=== PATIENT | female | born 1975 | race Hispanic/Latino ===

== ENCOUNTER 2017-10-13 18:30 | Inpatient (IN) | payer OTHER ==
[2017-10-13] MEDS ORDERED: Ibuprofen 200 MG TAB ONE ×2 (19:56)
[2017-10-13 20:30] LABS: Hemoglobin 9.4 g/dL (12.0-16.0); Mean Corpuscular HGB CONC 31.2 g/dL (32.0-36.0); Mean Corpuscular Hemoglobin 20.2 pg (27.0-31.0); Mean Corpuscular Volume 64.9 fl (81.0-99.0); Mean Platelet Volume 5.3 fL (7.4-10.4); Platelet Count 212 thou/uL (130-400); RBC Distribution Width 16.3 % (11.5-14.5); Red Blood Cell (RBC) Count 4.66 mill/uL (4.20-5.40)
[2017-10-13 20:45] LABS: ALT (SGPT) 70 U/L (8-55); AST (SGOT) 86 U/L (5-34); Albumin 4.6 g/dL (3.5-5.0); Alkaline Phosphatase 130 U/L (40-150); Anion Gap 13 mmol/L (10-20); BUN (Urea Nitrogen) 6 mg/dL (7.0-18.7); Bilirubin, Direct 0.3 mg/dL (0.1-0.3); Bilirubin, Total 0.6 mg/dL (0.2-1.2); Calc. Creatinine Clearance 0 mL/min (70-130); Calcium 9.3 mg/dL (7.8-10.44); Carbon Dioxide 22 mmol/L (22-29); Chloride 101 mmol/L (98-107); Estimated GFR-MDRD Greater than 90; Globulin 3.9 g/dL (2.4-3.5); Glucose 140 mg/dL (70-105); Potassium 3.9 mmol/L (3.5-5.1); Protein, Total 8.5 g/dL (6.0-8.3); Sodium 132 mmol/L (136-145)
[2017-10-13 20:51] LABS: #Lymphocytes 0.5 thou/uL (1.20-3.40); #Monocytes 0.3 thou/uL (0.11-0.59); #Neutrophils 4.2 thou/uL (1.40-6.50); %Eosinophils 0.5 % (0.0-10.0); %Lymphocytes 9.2 % (21.0-51.0); %Monocytes 5.9 % (0.0-10.0); %Neutrophils 84.5 % (42.0-75.0); Anisocytosis SLIGHT = 6-15 cells (100X) (0-5/hpf); Hypochromia SLIGHT = 6-15 cells (100X) (0-5/hpf); MDiff Complete? YES; Microcytosis MODERATE=15-30 cells (100X) (0-5/hpf); PLT Morphology Comment Appears Adequate
[2017-10-13 23:21] LABS: Magnesium 2.3 mg/dL (1.6-2.6)
[2017-10-13] MEDS ORDERED: Pantoprazole 40 MG VIAL ONE (23:22)
[2017-10-13] MEDS ORDERED: Ondansetron HCl/PF 4 MG/2 ML Vial ONE (23:22)
[2017-10-14] MEDS ORDERED: Acetaminophen 500 MG TAB ONE (01:20)
[2017-10-14] MEDS: Sodium Chloride 0.9% 1,000 ML IV SCH ×3 (02:10→17:09)
[2017-10-14 02:34] VITALS: BMI 27.6
[2017-10-14 03:46] LABS: Anion Gap 13 mmol/L (10-20); BUN (Urea Nitrogen) 5 mg/dL (7.0-18.7); Calc. Creatinine Clearance 149 mL/min (70-130); Calcium 8.4 mg/dL (7.8-10.44); Carbon Dioxide 19 mmol/L (22-29); Chloride 106 mmol/L (98-107); Estimated GFR-MDRD Greater than 90; Glucose 123 mg/dL (70-105); Potassium 3.6 mmol/L (3.5-5.1); Sodium 134 mmol/L (136-145)
[2017-10-14 03:47] LABS: Iron 15 ug/dL (50-170); Iron Binding Capacity, Total 423 mcg/dL (265-497)
[2017-10-14 03:59] LABS: Hemoglobin 8.3 g/dL (12.0-16.0); Mean Corpuscular HGB CONC 31.9 g/dL (32.0-36.0); Mean Corpuscular Hemoglobin 20.8 pg (27.0-31.0); Mean Corpuscular Volume 65.1 fl (81.0-99.0); Mean Platelet Volume 5.3 fL (7.4-10.4); Platelet Count 163 thou/uL (130-400); RBC Distribution Width 16.1 % (11.5-14.5); Red Blood Cell (RBC) Count 3.97 mill/uL (4.20-5.40); White Blood Cell (WBC) Count 3.3 thou/uL (4.8-10.8)
[2017-10-14 04:17] LABS: #Lymphocytes 0.4 thou/uL (1.20-3.40); #Monocytes 0.2 thou/uL (0.11-0.59); #Neutrophils 2.7 thou/uL (1.40-6.50); %Basophils 0.2 % (0.0-1.0); %Eosinophils 0.7 % (0.0-10.0); %Lymphocytes 11.2 % (21.0-51.0); %Monocytes 6.1 % (0.0-10.0); %Neutrophils 81.7 % (42.0-75.0); Anisocytosis SLIGHT = 6-15 cells (100X) (0-5/hpf); MDiff Complete? YES; Microcytosis MODERATE=15-30 cells (100X) (0-5/hpf)
[2017-10-14] MEDS ORDERED: Diabetic Tussin 200 MG/10 ML UDCUP PO PRN (04:22)
[2017-10-14] MEDS ORDERED: Senokot 8.6 MG TAB PO PRN (04:22)
[2017-10-14] MEDS ORDERED: Calcium Carbonate 500 MG ChewTAB PO PRN (04:22)
[2017-10-14] MEDS ORDERED: cloNIDine 0.1 MG TAB PO PRN (04:22)
[2017-10-14] MEDS ORDERED: Mag-Al 1200 mg/1200 mg/30 ML UDCUP PO PRN (04:22)
[2017-10-14] MEDS ORDERED: Acetaminophen 325 MG TAB PO PRN (04:22)
[2017-10-14] MEDS ORDERED: hydrALAZINE 20 MG/ML VIAL SLOW IVP PRN (04:22)
[2017-10-14] MEDS ORDERED: Bisacodyl 5 MG TAB PO PRN (04:22)
[2017-10-14] MEDS ORDERED: Benzonatate 100 MG CAP PO PRN (04:22)
[2017-10-14] MEDS ORDERED: IRON SUCROSE COMPLEX 100 MG/5 ML SLOW IVP SCH (04:45)
[2017-10-14] MEDS ORDERED: Iron Sucrose Complex 200 MG in Sodium Chloride 0.9% 250 ML 250 ML IVPB SCH (05:15)
[2017-10-14] MEDS: Levothyroxine Sodium 88 MCG TAB PO SCH (05:20)
[2017-10-14 06:02] LABS: INR-International Normal Ratio 1.2; PTT 31.3 SEC (22.9-36.1); Prothrombin Time 14.9 SEC (12.0-14.7)
[2017-10-14 06:08] LABS: BHCG - Serum Negative (NEGATIVE); Pregs Control Background? CLEAR/WHITE (CLR/WHITE); Pregs Control Bar Appear? YES (CONTROL BAR)
[2017-10-14] MEDS: Nitroglycerin 0.4 MG TAB (25 Tab Bottle) SL PRN ×2 (07:03→07:08)
--- NOTE | 2017-10-14 07:52 | PDOC.EVN ---
Event Note - Event Note Event Note: fever 101.4, HR 150s and chest pain most recent labs demonstrate progression towards leukopenia Concern for evolving sepsis and potential DC stat: troponin, EKG, blood cx x2, lactic acid broaden empiric abx to vancomycin, ceftriaxone - if recurrent febrile episode will need to repeat blood cultures Given presentation with diffuse cervical lymphadenopathy, infectious/ reactive vs oncologic origin are both of concern check CT abd/ pelvis to eval for potential abscess/ infectious origin check CT chest to r/o PE
[2017-10-14] MEDS: Ondansetron HCl/PF 4 MG/2 ML Vial IVP PRN (08:01)
[2017-10-14] MEDS: Acetaminophen 325 MG TAB PO PRN (08:01)
[2017-10-14 08:10] LABS: #Lymphocytes 0.4 thou/uL (1.20-3.40); #Monocytes 0.1 thou/uL (0.11-0.59); #Neutrophils 3.3 thou/uL (1.40-6.50); %Eosinophils 0.4 % (0.0-10.0); %Lymphocytes 9.6 % (21.0-51.0); %Monocytes 3.6 % (0.0-10.0); %Neutrophils 86.4 % (42.0-75.0); Hemoglobin 8.4 g/dL (12.0-16.0); Mean Corpuscular HGB CONC 30.8 g/dL (32.0-36.0); Mean Corpuscular Hemoglobin 20.3 pg (27.0-31.0); Mean Platelet Volume 4.7 fL (7.4-10.4); Platelet Count 146 thou/uL (130-400); RBC Distribution Width 16.1 % (11.5-14.5); Red Blood Cell (RBC) Count 4.14 mill/uL (4.20-5.40); White Blood Cell (WBC) Count 3.9 thou/uL (4.8-10.8)
[2017-10-14 08:23] LABS: ALT (SGPT) 71 U/L (8-55); AST (SGOT) 82 U/L (5-34); Albumin 4.1 g/dL (3.5-5.0); Alkaline Phosphatase 119 U/L (40-150); Anion Gap 16 mmol/L (10-20); BUN (Urea Nitrogen) 6 mg/dL (7.0-18.7); Bilirubin, Total 0.7 mg/dL (0.2-1.2); Calc. Creatinine Clearance 118 mL/min (70-130); Calcium 8.3 mg/dL (7.8-10.44); Carbon Dioxide 17 mmol/L (22-29); Chloride 105 mmol/L (98-107); Estimated GFR-MDRD 88; Globulin 3.3 g/dL (2.4-3.5); Glucose 151 mg/dL (70-105); Potassium 3.7 mmol/L (3.5-5.1); Protein, Total 7.4 g/dL (6.0-8.3); Sodium 134 mmol/L (136-145)
[2017-10-14 08:34] LABS: Band 27 % (5-11); Hypochromia SLIGHT = 6-15 cells (100X) (0-5/hpf); Lymphocytes 6 % (21-51); MDiff Complete? YES; Metamyelocyte 1 % (0-0); Microcytosis MODERATE=15-30 cells (100X) (0-5/hpf); Monocytes 1 % (0-10); Neutrophil 65 % (42-75); PLT Morphology Comment Appears Adequate; Polychromasia SLIGHT = 2-3 cells (100X) (0-2/hpf); Reflex for Review?? NO; Small Platelets MODERATE
[2017-10-14] MEDS: cefTRIAXone\\ROCEPHIN 2 GM, Admixture Fee 1 EACH in Sodium Chloride 0.9% 100 ML IVPB SCH (08:42)
[2017-10-14] MEDS ORDERED: FLU VACC QS2017-18 36 mo. & older 0.5 ML SYRINGE IM ONE (09:00)
[2017-10-14] MEDS ORDERED: Vancomycin HCl 1 GM in Sodium Chloride 0.9% 250 ML 250 ML IVPB SCH (09:00)
[2017-10-14] MEDS: Vancomycin HCl 1 GM in Premix Bag 1 BAG IVPB SCH ×2 (09:23→17:09)
[2017-10-14] MEDS: Ibuprofen 600 MG TAB PO PRN (10:11)
--- NOTE | 2017-10-14 10:53 | HP ---
DATE OF ADMISSION: 10/14/2017 PRIMARY CARE PHYSICIAN: Yudith Gates M.D. CHIEF COMPLAINT: Nausea, vomiting, abdominal pain, and neck swelling as well as fever. HISTORY OF PRESENT ILLNESS: Ms. Finley is a very pleasant 42-year-old female without any sign ificant past medical history, who presented to the emergency room with the above-mentioned complaints . History is mainly obtained by the patient herself and the electronic medical records have been rev iewed. Case has been discussed with the admitting ER physician, Dr. Hilda Yan. According to Ms. Finley, she has noticed swelling in the left side of her neck about 2 weeks ago, which did not bother her much. She is otherwise asymptomatic up until 2 days ago when she started to have low-grade fever. She did not measure how high the temperature was. Yesterday morning, she started to have vomiting and significant abdominal pain without any diarrhea. She denies any hematochezia, m radha, or hematemesis. She denies any sick contacts. She denies any cough, runny nose, sore throat, or flu-like symptoms. She underwent an outpatient CT scan of her neck by her primary care physician yesterday morning. That showed significant lymphadenopathy in the left side within the posterior tr iangle of the neck on the left. Upon presentation to the emergency room today, she was hemodynamically stable except that she had a f ever of 101.9 and was tachycardic to 123. Her workup included a CBC which showed that her hemoglobin has dropped to 9.4, which was 14.1 in 04/2017. The patient denies any excessive menstrual bleeding. The patient does not think that she is because she has her tubal ligation done, but pregna ncy test has not been done in the emergency room. She denies any overt bleeding. She is not on any blood thinners. Ms. Finley is now being admitted for various findings including unexplained microcytic anemia, cervical lymphadenopathy as well as vomiting, and abdominal pain. PAST MEDICAL HISTORY: Hypothyroidism. PAST SURGICAL HISTORY: Cholecystectomy, section x2, and tubal ligation. PSYCHIATRIC HISTORY: No anxiety or depression. SOCIAL HISTORY: She is and has 3 kids. No drug, tobacco or alcohol abuse. FAMILY HISTORY: Significant for leukemia in her brother and lung cancer in her father. Her mother i s a diabetic. ALLERGIES: No known medication allergies. CURRENT MEDICATIONS: Levothyroxine 88 mcg daily, cefdinir 300 mg b.i.d. She has been taking this fo r last 2 days. REVIEW OF SYSTEMS: The following complete review of systems was negative, unless otherwise mentioned in the HPI or below: Constitutional: Weight loss or gain, ability to conduct usual activities. Skin: Rash, itching. Eyes: Double vision, pain. ENT/Mouth: Nose bleeding, neck stiffness, pain, tenderness. Cardiovascular: Palpitations, dyspnea on exertion, orthopnea. Respiratory: Shortness of breath, wheezing, cough, hemoptysis, fever or night sweats. Gastrointestinal: Poor appetite, abdominal pain, heartburn, nausea, vomiting, constipation, or diarr hea. Genitourinary: Urgency, frequency, dysuria, nocturia. Musculoskeletal: Pain, swelling. Neurologic/Psychiatric: Anxiety, depression. Allergy/Immunologic: Skin rash, bleeding tendency. PHYSICAL EXAMINATION: VITAL SIGNS: Most recent vital signs include temperature 99.7, pulse anywhere from 103 to 107, respi rations 18, saturating 97% on room air, blood pressure 102/59. GENERAL: No acute distress, awake, alert, oriented x3. HEENT: Mucous membrane is moist and pink. No oropharyngeal exudates or erythema. Head is normoceph alic, atraumatic. Pupils equal, reactive to light and accommodation. Extraocular movements intact. NECK: Supple without any lymphadenopathy, JVD or bruit. CHEST: Clear to auscultation without any wheezing, rales or rhonchi. CARDIOVASCULAR: Rate and rhythm is regular without any murmur, rubs or gallops. ABDOMEN: Tender to palpation all over including right upper quadrant epigastric region, left lower q uadrant and suprapubic area. There is also some CVA tenderness to the left side. No rebound, guardi ng or rigidity is noticed. EXTREMITIES: Free of any cyanosis, clubbing, or edema. NEUROLOGIC: Nonfocal. SKIN: Free of any rashes or bruises. Feels warm and dry to touch. PSYCHIATRIC: Normal affect. LABORATORY EXAMINATION: CBC shows WBCs at 5.0 with 84% neutrophils, hemoglobin 9.4 with repeat hemog lobin of 8.3. She has low MCV, MCH and MCHC with high RDW. Serum chemistries show sodium of 132. O therwise, she has mild elevation of liver enzymes with AST of 86, ALT of 70 with normal alkaline phos phatase. Total protein is 8.5 without any disproportionate albumin globulin ratio. TSH is normal at 1.8. Lipase is normal at 25. Urinalysis has not been done. Chest x-ray has not been done. IMPRESSION AND PLAN: 1. Systemic inflammatory response syndrome. The patient has neutrophilia and fever as well as tachy cardia. She will be admitted for sepsis workup. Most likely scenario is either urinary tract infect ion with or without pyelonephritis. We will obtain urinalysis with culture along with blood cultures . We will start her on empiric levofloxacin and supportive care with IV fluids. She will be admitte d on medical floor as she is at this time hemodynamically stable. 2. Iron deficiency anemia, unclear etiology. We will check a serum test as well as serum iron indices and B12 and folic acid levels. She appears to have microcytic anemia. Also obtain occu lt blood testing in the stool. The patient denies having any gastrointestinal bleed symptoms. She i s not on any nonsteroidal antiinflammatory drugs. She is not on any blood thinners. This can probab ly be just nutritional iron deficiency. Malignancy workup has also been initiated as below. 3. Cervical lymphadenopathy. It is unclear if it is related to the current febrile illness or not. The patient reports that she has had a mammogram done 2 months ago, which was normal. We will obtai n a CT scan of the chest, abdomen, and pelvis to rule out any organomegaly or any other diffuse lymph adenopathy to rule out lymphoma or metastatic disease. The cervical lymphadenopathy in itself can be reactive to current febrile illness. 4. Vomiting and abdominal pain. Once again, we will obtain a CT scan of the abdomen and pelvis and continue empiric IV antibiotic for now. Continue IV fluids. 5. Hypothyroidism. We will restart her home medication of levothyroxine and she will continue to fo llow up with her outpatient primary care physician. 6. Check serum test stat. 7. Walking program and gastrointestinal prophylaxis. DISPOSITION: Ms. Finley is currently being admitted under observation status for workup of her anemia and febrile illness with lymphadenopathy. Further management will depend upon her clinical course.
[2017-10-14 12:25] LABS: Lactic Acid 1.7 mmol/L (0.5-2.2)
--- NOTE | 2017-10-14 12:27 | CT ---
CT CHEST WITH CONTRAST CT ABDOMEN AND PELVIS WITH CONTRAST: Date: 10-14-17 Provided Clinical History: Lymphadenopathy in the neck, concern for lymphoma. FINDINGS: No comparison examinations. The heart, pericardium and great vessels demonstrates an unremarkable CT appearance. There is no evid ence for thoracic lymph node enlarged. The lungs are free of significant opacity. No pleural fluid or pneumothorax is apparent. The air way appears patent and of normal caliber. The liver, spleen, pancreas, kidneys and adrenal glands demonstrate an unremarkable CT appearance. Th ere is no bowel dilatation, inflammatory fat stranding or lymphnode enlargement in the abdomen or pel vis. There is a small amount of free pelvic fluid, likely physiologic in nature. The osseous structures demonstrate no concerning lytic or blastic lesions. Degenerative changes are s een involving the lumbar spine. IMPRESSION: 1. No evidence for an acute process involving the chest, abdomen, and pelvis. POS: [facility]
[2017-10-14] MEDS ORDERED: Iopamidol 370 76% 100 ML VIAL ONE (13:01)
[2017-10-14] MEDS: Meropenem 1 GM in Sterile Water 20 ML SLOW IVP SCH ×2 (13:34→22:46)
[2017-10-14] MEDS ORDERED: Meropenem 1 GM in Sodium Chloride 0.9% 100 ML IVPB SCH (14:00)
[2017-10-14] MEDS: HYDROcodone/Acetaminophen 5/325 mg Tablet PO PRN (22:55)
[2017-10-15] MEDS: Ondansetron HCl/PF 4 MG/2 ML Vial IVP PRN ×2 (00:19→05:54)
[2017-10-15] MEDS: Vancomycin HCl 1 GM in Premix Bag 1 BAG IVPB SCH (00:21)
[2017-10-15] MEDS: Levothyroxine Sodium 88 MCG TAB PO SCH (04:54)
[2017-10-15] MEDS: Ibuprofen 600 MG TAB PO PRN (04:54)
[2017-10-15] MEDS: Sodium Chloride 0.9% 1,000 ML IV SCH ×3 (04:55→14:20)
[2017-10-15] MEDS: Meropenem 1 GM in Sterile Water 20 ML SLOW IVP SCH ×3 (04:55→23:33)
[2017-10-15 05:30] LABS: Anion Gap 14 mmol/L (10-20); BUN (Urea Nitrogen) 6 mg/dL (7.0-18.7); Calc. Creatinine Clearance 145 mL/min (70-130); Calcium 8.7 mg/dL (7.8-10.44); Carbon Dioxide 19 mmol/L (22-29); Chloride 106 mmol/L (98-107); Estimated GFR-MDRD Greater than 90; Glucose 94 mg/dL (70-105); Potassium 3.5 mmol/L (3.5-5.1); Sodium 135 mmol/L (136-145)
[2017-10-15 05:39] LABS: Bilirubin Negative (Negative); Blood, Urine Negative (Negative); Clarity CLOUDY (Clear); Glucose, Urine (Dipstick) Negative (Negative); Leukocyte Negative (Negative); Nitrite Negative (Negative); Protein, Urine (Dipstick) Trace mg/dL (Neg-Trace); Specific Gravity, Urine 1.023 (1.002-1.036)
[2017-10-15] MEDS: cefTRIAXone\\ROCEPHIN 2 GM, Admixture Fee 1 EACH in Sodium Chloride 0.9% 100 ML IVPB SCH (08:30)
[2017-10-15 08:31] LABS: Vancomycin, Trough 6.3 ug/mL
[2017-10-15 08:40] LABS: #Lymphocytes 0.4 thou/uL (1.20-3.40); #Monocytes 0.2 thou/uL (0.11-0.59); #Neutrophils 2.5 thou/uL (1.40-6.50); %Basophils 0.2 % (0.0-1.0); %Eosinophils 0.8 % (0.0-10.0); %Lymphocytes 12.9 % (21.0-51.0); %Monocytes 6.3 % (0.0-10.0); %Neutrophils 79.9 % (42.0-75.0); Hemoglobin 7.5 g/dL (12.0-16.0); Mean Corpuscular HGB CONC 30.8 g/dL (32.0-36.0); Mean Corpuscular Hemoglobin 20.3 pg (27.0-31.0); Mean Corpuscular Volume 65.9 fl (81.0-99.0); Mean Platelet Volume 5.5 fL (7.4-10.4); Platelet Count 128 thou/uL (130-400); RBC Distribution Width 16.2 % (11.5-14.5); White Blood Cell (WBC) Count 3.1 thou/uL (4.8-10.8)
[2017-10-15] MEDS ORDERED: Promethazine 25 MG TAB PO PRN (09:15)
[2017-10-15] MEDS ORDERED: Promethazine HCl 25 MG/ML VIAL SLOW IVP PRN (09:32)
[2017-10-15] MEDS: Vancomycin HCl 1.25 GM in Sodium Chloride 0.9% 250 ML 250 ML IVPB SCH ×3 (10:20→20:49)
[2017-10-15] MEDS: Pantoprazole 80 MG, Admixture Fee 1 EACH in Sodium Chloride 0.9% 100 ML IVP SCH (10:23)
--- NOTE | 2017-10-15 13:25 | PQF ---
CLINICAL DOCUMENTATION IMPROVEMENT CLARIFICATION FORM: ICD-10 Updated PLEASE DO AN ADDENDUM TO THE PROGRESS NOTE WITH ANY DOCUMENTATION UPDATES OR ADDITIONS AND CARRY THROUGH TO DC SUMMARY. THANK YOU. DATE: 10/15/17 ATTN: DR. BRAGG Please exercise your independent, professional judgment in responding to the clarification form. Clinical indicators are provided on the bottom of this form for your review Please check appropriate box(s) to clarify if the following diagnosis has been ruled in our ruled out: SEPSIS [ x ] Ruled in diagnosis [ x ] Continue to treat [ ] Resolved [ ] Ruled out diagnosis [ ] Other diagnosis [ ] Unable to determine In addition, please specify: Present on Admission (POA): [ x ] Yes [ ] No [ ] Unable to determine For continuity of documentation, please document condition throughout progress notes and discharge summary. Thank You. CLINICAL INDICATORS - SIGNS / SYMPTOMS / LABS H&P: "SYSTEMIC INFLAMMATORY RESPONSE SYNDROME" "SHE WILL BE ADMITTED FOR SEPSIS WORKUP." EVENT NOTE 10/14: "CONCERN FOR EVOLVING SEPSIS..." WBC 3.1 BANDS 27 LACTIC ACID 2.9 TEMP 103.1 PULSE 135 BP 89/52 RISKS: CERVICAL LYMPHADENOPATHY NAUSEA AND VOMITING FEBRILE ILLNESS OF UNKNOWN ETIOLOGY TREATMENT: IV FLUIDS (ER-PRESENT) IV MEROPENEM (2/-PRESENT) IV VANCOMYCIN (/-2) IV ROCEPHIN ( 2/-PRESENT) BLOOD AND URINE CULTURES SERIAL LABS (This form is maintained as a part of the permanent medical record) 2014 [employer]. All Rights Reserved [email or web address] Office: [phone] [facility] CENTERKathleen
[2017-10-15] MEDS: HYDROcodone/Acetaminophen 5/325 mg Tablet PO PRN ×2 (15:10→20:47)
--- NOTE | 2017-10-15 15:22 | PDOC.PN ---
- Subjective Encounter Start Date: 10/15/17 Encounter Start Time: 10:00 Subjective: nsg notes rev, c/o ADAMES, nausea -: had a fever overnight - Objective Vital Signs & Weight: Vital Signs (12 hours) Temp Pulse Resp BP Pulse Ox 10/15/17 11:55 98.7 F 108 H 12 109/53 L 100 10/15/17 08:00 98.7 F 108 H 12 10/15/17 07:26 98.2 F 92 16 89/52 L 99 10/15/17 04:43 100.8 F H 104 H 18 115/57 L 100 Weight Weight 160 lb I&O: 10/14/17 10/15/17 10/16/17 06:59 06:59 06:59 Intake Total 1789 120 Output Total 300 850 Balance -300 939 120 Result Diagrams: 10/15/17 08:07 10/15/17 04:49 Additional Labs: occult stool + Phys Exam - Physical Examination Constitutional: NAD Neck: no JVD Respiratory: no wheezing, no rales, no rhonchi, clear to auscultation bilateral Cardiovascular: RRR, no significant murmur, no rub Gastrointestinal: soft, no distention, positive bowel sounds Musculoskeletal: no edema, pulses present Neurological: moves all 4 limbs Psychiatric: normal affect, A&O x 3 Dx/Plan (1) Sepsis Code(s): A41.9 - SEPSIS, UNSPECIFIED ORGANISM Status: Acute (2) Cervical lymphadenopathy Code(s): R59.0 - LOCALIZED ENLARGED LYMPH NODES Status: Acute (3) Fever Code(s): R50.9 - FEVER, UNSPECIFIED Status: Acute (4) Anemia Code(s): D64.9 - ANEMIA, UNSPECIFIED Status: Acute (5) Leukopenia Code(s): D72.819 - DECREASED WHITE BLOOD CELL COUNT, UNSPECIFIED Status: Acute - Plan cont current plan of care, plan discussed w/ family, continue antibiotics patient initially p/w nonspec c/o and fever febrile illness * with leukopenia, cervical lymphadenopathy * continues despite empiric vanc, ceftriaxone, merrem * cultures (blood, urine) NGTD * unclear etiology, will c/s ID sepsis * as per above * IV fluid resuscitation * closely monitor I/O anemia * with occult blood + * progressive decline in H/H could be hemodilutional in setting of Fe def; however, in setting of persistent N/V and abdominal discomfort, t/c severe/ erosive gastritis as part of ddx * start protonix gtt * serial CBC * IVF NS@200 cc/hr diet: NPO activity: as twan dvt ppx: SQ Review of Systems - Medications/Allergies Allergies/Adverse Reactions: Allergies Allergy/AdvReac Type Severity Reaction Status Date / Time No Known Drug Allergies Allergy Verified 10/14/17 02:18 Medications: Current Medications Acetaminophen (Tylenol) 650 mg PO Q6H PRN PRN Reason: Headache/Fever or Pain Last Admin: 10/14/17 08:01 Dose: 650 mg Hydrocodone Bitart/Acetaminophen ([place] 5/325) 1 tab PO Q4H PRN PRN Reason: Moderate Pain (4-6) Last Admin: 10/15/17 15:10 Dose: 1 tab Al Hydroxide/Mg Hydroxide (Maalox) 30 ml PO Q6H PRN PRN Reason: Heartburn or Indigestion Benzonatate (Tessalon) 100 mg PO Q4H PRN PRN Reason: Cough Bisacodyl (Dulcolax) 10 mg PO DAILYPRN PRN PRN Reason: Constipation Calcium Carbonate (Tums) 1,000 mg PO Q4H PRN PRN Reason: Heartburn or Indigestion Clonidine (Catapres) 0.1 mg PO Q4H PRN PRN Reason: Systolic BP > 160 Guaifenesin (Robitussin Sf) 200 mg PO Q4H PRN PRN Reason: Cough Hydralazine HCl (Apresoline) 10 mg SLOW IVP Q4H PRN PRN Reason: Systolic BP > 180 Ceftriaxone Sodium 2 gm/Miscellaneous Medication 1 each/ Sodium Chloride 100 mls @ 200 mls/hr IVPB Q24HR ARPAN Last Admin: 10/15/17 08:30 Dose: 100 mls Meropenem 1 gm/ Sterile Water 20 mls @ 240 mls/hr SLOW IVP Q8HR ARPAN Last Admin: 10/15/17 15:09 Dose: 20 mls Vancomycin HCl 1.25 gm/ Sodium (Chloride) 250 mls @ 166.667 mls/hr IVPB 0300, 0900,1500,2100 ARPAN Last Admin: 10/15/17 10:20 Dose: 250 mls Sodium Chloride (Normal Saline 0.9%) 1,000 mls @ 200 mls/hr IV .Q5H ARPAN Last Admin: 10/15/17 10:24 Dose: Not Given Pantoprazole Sodium 80 mg/Miscellaneous Medication 1 each/ Sodium Chloride 100 mls @ 10 mls/hr IVP INF ARPAN Last Admin: 10/15/17 10:23 Dose: 100 mls Ibuprofen (Motrin) 600 mg PO Q6H PRN PRN Reason: Fever > 101 Last Admin: 10/15/17 04:54 Dose: 600 mg Levothyroxine Sodium (Synthroid) 88 mcg PO 0600 ARPAN Last Admin: 10/15/17 04:54 Dose: 88 mcg Miscellaneous Medication (Pharmacy To Dose) 1 each IVPB ASDIR ARPAN Nitroglycerin (Nitrostat) 0.4 mg SL Q5MIN PRN PRN Reason: Chest Pain Last Admin: 10/14/17 07:08 Dose: 0.4 mg Ondansetron HCl (Zofran) 4 mg IVP Q6H PRN PRN Reason: Nausea/Vomiting Last Admin: 10/15/17 05:54 Dose: 4 mg Promethazine HCl (Phenergan) 12.5 mg SLOW IVP Q6H PRN PRN Reason: Nausea Last Admin: 10/15/17 10:22 Dose: 12.5 mg Senna (Senokot) 2 tab PO HSPRN PRN PRN Reason: Constipation Sodium Chloride (Flush - Normal Saline) 10 ml IVF Q12HR [facility] Sodium Chloride (Flush - Normal Saline) 10 ml IVF PRN PRN PRN Reason: Saline Flush Tramadol HCl (Ultram) 50 mg PO Q4H PRN PRN Reason: Moderate Pain (4-6)
[2017-10-15 16:23] LABS: #Lymphocytes 0.4 thou/uL (1.20-3.40); #Monocytes 0.2 thou/uL (0.11-0.59); #Neutrophils 1.8 thou/uL (1.40-6.50); %Eosinophils 1.6 % (0.0-10.0); %Lymphocytes 15.3 % (21.0-51.0); %Monocytes 8.8 % (0.0-10.0); %Neutrophils 74.4 % (42.0-75.0); Hemoglobin 7.5 g/dL (12.0-16.0); Mean Corpuscular Hemoglobin 21.1 pg (27.0-31.0); Mean Corpuscular Volume 65.8 fl (81.0-99.0); Mean Platelet Volume 5.8 fL (7.4-10.4); Platelet Count 117 thou/uL (130-400); Red Blood Cell (RBC) Count 3.53 mill/uL (4.20-5.40); White Blood Cell (WBC) Count 2.5 thou/uL (4.8-10.8)
[2017-10-15 20:04] LABS: HBCM Index 0.08 S/CO (0-0.79); HBSAg Index 0.25 S/CO (0-0.99); HIV (1/2) Antibody/Antigen Non-Reactive (NonReactive); HIV 1/2 INDEX 0.12 S/CO (<1.00); Hep A IgM AB Non-Reactive (NonReactive); Hep A IgM S/CO 0.22 S/CO (0-0.79); Hep B Surf Ag Non-Reactive S/CO (NonReactive); Hep C IgG Ab Non-Reactive (NonReactive); Hepatitis B Core IGM Abs Non-Reactive (NonReactive)
[2017-10-15 22:11] LABS: Band 21 % (5-11); Eosinophils 1 % (0-10); Hypochromia SLIGHT = 6-15 cells (100X) (0-5/hpf); Lymphocytes 16 % (21-51); MDiff Complete? YES; Mean Corpuscular HGB CONC 32.2 g/dL (32.0-36.0); Mean Corpuscular Hemoglobin 20.8 pg (27.0-31.0); Mean Corpuscular Volume 64.5 fl (81.0-99.0); Mean Platelet Volume 5.6 fL (7.4-10.4); Metamyelocyte 2 % (0-0); Microcytosis MODERATE=15-30 cells (100X) (0-5/hpf); Monocytes 6 % (0-10); Myelocyte 2 % (0-0); Neutrophil 52 % (42-75); Nucleated RBC 1 % (0); Platelet Count 134 thou/uL (130-400); RBC Distribution Width 16.1 % (11.5-14.5); Red Blood Cell (RBC) Count 3.85 mill/uL (4.20-5.40); White Blood Cell (WBC) Count 3.1 thou/uL (4.8-10.8)
[2017-10-16] MEDS: Ibuprofen 600 MG TAB PO PRN ×4 (00:23→23:23)
[2017-10-16] MEDS: Sodium Chloride 0.9% 1,000 ML IV SCH ×5 (00:25→21:00)
[2017-10-16 02:31] LABS: #Eosinphils 0.1 thou/uL (0.0-0.7); #Lymphocytes 0.7 thou/uL (1.20-3.40); #Monocytes 0.3 thou/uL (0.11-0.59); %Basophils 0.8 % (0.0-1.0); %Eosinophils 3.8 % (0.0-10.0); %Lymphocytes 22.6 % (21.0-51.0); %Monocytes 8.4 % (0.0-10.0); %Neutrophils 64.4 % (42.0-75.0); Hemoglobin 7.6 g/dL (12.0-16.0); Mean Corpuscular HGB CONC 33.4 g/dL (32.0-36.0); Mean Corpuscular Hemoglobin 21.4 pg (27.0-31.0); Mean Corpuscular Volume 64.2 fl (81.0-99.0); Mean Platelet Volume 5.5 fL (7.4-10.4); Platelet Count 131 thou/uL (130-400); RBC Distribution Width 16.2 % (11.5-14.5); Red Blood Cell (RBC) Count 3.53 mill/uL (4.20-5.40); White Blood Cell (WBC) Count 3.1 thou/uL (4.8-10.8)
[2017-10-16 02:52] LABS: Vancomycin, Trough 12.1 ug/mL
[2017-10-16] MEDS: Vancomycin HCl 1.25 GM in Sodium Chloride 0.9% 250 ML 250 ML IVPB SCH ×4 (03:29→21:03)
[2017-10-16] MEDS: Levothyroxine Sodium 88 MCG TAB PO SCH (03:34)
[2017-10-16] MEDS: Meropenem 1 GM in Sterile Water 20 ML SLOW IVP SCH ×3 (05:57→23:23)
[2017-10-16] MEDS: cefTRIAXone\\ROCEPHIN 2 GM, Admixture Fee 1 EACH in Sodium Chloride 0.9% 100 ML IVPB SCH (07:56)
[2017-10-16 11:03] LABS: Band 25 % (5-11); Hemoglobin 8.3 g/dL (12.0-16.0); Hypochromia SLIGHT = 6-15 cells (100X) (0-5/hpf); Lymphocytes 25 % (21-51); MDiff Complete? YES; Mean Corpuscular HGB CONC 31.7 g/dL (32.0-36.0); Mean Corpuscular Hemoglobin 20.8 pg (27.0-31.0); Mean Corpuscular Volume 65.5 fl (81.0-99.0); Mean Platelet Volume 5.7 fL (7.4-10.4); Microcytosis MODERATE=15-30 cells (100X) (0-5/hpf); Monocytes 6 % (0-10); Neutrophil 44 % (42-75); Platelet Count 120 thou/uL (130-400); RBC Distribution Width 16.5 % (11.5-14.5); White Blood Cell (WBC) Count 3.2 thou/uL (4.8-10.8)
[2017-10-16] MEDS: Pantoprazole 80 MG, Admixture Fee 1 EACH in Sodium Chloride 0.9% 100 ML IVP SCH (12:34)
--- NOTE | 2017-10-16 13:14 | CON ---
DATE OF CONSULTATION: 10/16/2017 REASON FOR CONSULTATION: Lymphadenopathy with fever. HISTORY OF PRESENT ILLNESS: A 42-year-old, history of hypothyroidism, in her usual state of health u ntil about a month before when she developed anorexia and what she describes as early satiety with se nsation of fullness in the abdominal area. She remained this way with some possible low-grade temper ature elevation, although she never documented it. Then, about a week before she developed enlarged lymph node with tenderness in the left submandibular area close to the angle of the jaw. This was as sociated with worsening general malaise and worsening temperature. She had some vomiting and abdomin al pain, and therefore, she came to the emergency room and had an outpatient CT of the neck, which sh owed some small borderline enlarged lymph nodes in the left posterior cervical region, [place] [facility] [place], her temperature 101.9 and she was tachycardic. White cell count showed a decrease in he moglobin to 9.4. Currently, she is awake. She feels unwell, but in no acute distress. She has a ch ronic headache, which is usually associated with migraines for many years now. Now, she has the sens ation of posterior cervical tenderness, both right and left sides, and stiffness of muscles in the po sterior shoulder area, right and left side. No visual symptoms. No sore throat, odynophagia, dyspha jaydon, no toothache, no back pain, and no cough or sputum production or chest pain. She has abdominal tenderness in the upper segments of the abdomen. No genitourinary symptoms. No diarrhea or constipa tion. No bleeding. No joint symptoms. No skin disorder. No neurological symptoms. PAST MEDICAL HISTORY: Hypothyroidism. PAST SURGICAL HISTORY: Cholecystectomy, x2, tubal ligation. SOCIAL HISTORY: Never smoker, , and has been living in [place] for many years now. FAMILY HISTORY: Leukemia, lung cancer. ALLERGIES: None. MEDICATIONS: Had been on levothyroxine and had been taking cefdinir for 2 days. Currently, she is r eceiving Tylenol, [place], Maalox, Tessalon, Dulcolax, ceftriaxone, guaifenesin, meropenem, Nitrostat, pantoprazole, vancomycin. PHYSICAL EXAMINATION: VITAL SIGNS: T-max 103.1, she is now 103; blood pressure 119/68; pulse 111; respiratory rate 16; O2 sat 100%. SKIN EXAM: Normal. She has a peripheral IV access. No Aviles catheter, and she has a shotty tender left submandibular lymph node close to the angle of the jaw, and a few shotty lymph nodes on the left side. She has a shotty lymph node in the right axillary region, which is tender as well. HEENT: Ocular movements are conjugate. Oral cavity normal. Nasal passages patent. NECK: Supple. LUNGS: With symmetric clear breath sounds. HEART: S1, S2, regular rate without murmurs. No S3 or S4. ABDOMEN: Tender in the right and left upper quadrant. Liver edge is palpable about 2-3 cm below it, question of enlargement of spleen, although this was not shown by imaging study, no ascites and no b ladder distention. EXTREMITIES: No joint inflammatory activity. Pulses are 1+ in dorsalis pedis. Plantar responses ar e flexure and moves all extremities equally. NEUROLOGIC: Cognitive function appears to be intact. LABORATORY DATA: All the serologies for hepatitis and HIV negative. White cell count was 3.3 and no w 3.1, hemoglobin 8, MCV 64, platelets have gone down to 117, now 134. She had 52% neutrophils, 21%, bands 1%, nucleated RBC, 2% metamyelocytes, 2% myelocytes, and 16% lymphocytes. The chemistry with AST 82 and ALT 71. Sodium 134, creatinine 0.73. Urinalysis is not remarkable. Vancomycin trough 6. 3 and 12.1. IMAGING STUDIES: We have a CT abdomen and pelvis, which was not remarkable. Chest CT also not remar kable. ASSESSMENT: General malaise with anorexia and then now lymphadenopathy with tenderness left posterio r cervical region and right axillary region and fever. DISCUSSION: Differential diagnosis includes an acute infectious process including Bartonella hensela e infection, viral infections such as an EBV and cytomegalovirus. [place]mia is less likely. Mycobac terium tuberculosis less likely, but not ruled out. Histoplasmosis, Cryptococcus neoformans infectio n. Kikuchi-Red disease. Finally, noninfectious syndromes including inflammatory conditions suc h as systemic lupus erythematosus need to be considered. Malignancy including lymphoma is less likel y since this has had very acute onset. The lymph nodes are quite small and tender. Recommend that w e wait for the assays submitted. I would not recommend a biopsy just yet.
[2017-10-16 16:37] LABS: #Eosinphils 0.1 thou/uL (0.0-0.7); #Lymphocytes 0.4 thou/uL (1.20-3.40); #Monocytes 0.2 thou/uL (0.11-0.59); #Neutrophils 1.6 thou/uL (1.40-6.50); %Eosinophils 3.4 % (0.0-10.0); %Lymphocytes 17.1 % (21.0-51.0); %Monocytes 8.3 % (0.0-10.0); %Neutrophils 71.2 % (42.0-75.0); Hemoglobin 7.5 g/dL (12.0-16.0); Mean Corpuscular HGB CONC 31.6 g/dL (32.0-36.0); Mean Corpuscular Hemoglobin 20.7 pg (27.0-31.0); Mean Corpuscular Volume 65.4 fl (81.0-99.0); Mean Platelet Volume 5.6 fL (7.4-10.4); Platelet Count 115 thou/uL (130-400); RBC Distribution Width 16.2 % (11.5-14.5); Red Blood Cell (RBC) Count 3.64 mill/uL (4.20-5.40); White Blood Cell (WBC) Count 2.3 thou/uL (4.8-10.8)
[2017-10-16 16:38] LABS: Anisocytosis SLIGHT = 6-15 cells (100X) (0-5/hpf); Hypochromia SLIGHT = 6-15 cells (100X) (0-5/hpf); MDiff Complete? YES; Microcytosis SLIGHT = 6-15 cells (100X) (0-5/hpf); Ovalocytes SLIGHT = 2-5 cells (100X) (0-1/hpf); PLT Morphology Comment Appears Decreased
[2017-10-16] MEDS: HYDROcodone/Acetaminophen 5/325 mg Tablet PO PRN (21:09)
[2017-10-16 21:22] LABS: #Eosinphils 0.1 thou/uL (0.0-0.7); #Lymphocytes 0.4 thou/uL (1.20-3.40); #Monocytes 0.1 thou/uL (0.11-0.59); #Neutrophils 1.4 thou/uL (1.40-6.50); %Basophils 0.2 % (0.0-1.0); %Eosinophils 3.3 % (0.0-10.0); %Lymphocytes 18.1 % (21.0-51.0); %Monocytes 6.2 % (0.0-10.0); %Neutrophils 72.2 % (42.0-75.0); Hemoglobin 6.4 g/dL (12.0-16.0); Mean Corpuscular HGB CONC 32.3 g/dL (32.0-36.0); Mean Corpuscular Hemoglobin 21.4 pg (27.0-31.0); Mean Corpuscular Volume 66.3 fl (81.0-99.0); Mean Platelet Volume 5.4 fL (7.4-10.4); PLT Morphology Comment Appears Decreased; Platelet Count 99 thou/uL (130-400); RBC Distribution Width 16.1 % (11.5-14.5); Red Blood Cell (RBC) Count 2.97 mill/uL (4.20-5.40); White Blood Cell (WBC) Count 1.9 thou/uL (4.8-10.8)
[2017-10-16] MEDS ORDERED: Lidocaine 2% Viscous Solution 10 ML, Aluminum & Magnesium Hydroxide 30 ML SSW SCH ×2 (22:45)
--- NOTE | 2017-10-16 22:45 | PDOC.PN ---
- Subjective Encounter Start Date: 10/16/17 Encounter Start Time: 15:00 Subjective: nsg notes rev, liz ovn, still with significant nausea and abd pain -: d/w family at bedside - Objective Vital Signs & Weight: Vital Signs (12 hours) Temp Pulse Resp BP BP Pulse Ox 10/16/17 20:00 98.7 F 101 H 16 114/63 98 10/16/17 15:17 98.7 F 82 16 99/63 100 10/16/17 11:29 99.5 F 109 H 16 108/60 95 Weight Weight 160 lb I&O: 10/15/17 10/16/17 10/17/17 06:59 06:59 06:59 Intake Total 1789 4686 2160 Output Total 850 1700 800 Balance 939 2986 1360 Result Diagrams: 10/17/17 09:18 10/17/17 09:18 Phys Exam - Physical Examination Constitutional: NAD HEENT: PERRLA, moist MMs Neck: no JVD Respiratory: no wheezing, no rales, no rhonchi, clear to auscultation bilateral Cardiovascular: RRR, no significant murmur, no rub Gastrointestinal: soft, non-tender, no distention, positive bowel sounds Musculoskeletal: no edema, pulses present Psychiatric: normal affect, A&O x 3 Skin: no rash, normal turgor, cap refill <2 seconds Dx/Plan (1) Sepsis Code(s): A41.9 - SEPSIS, UNSPECIFIED ORGANISM Status: Acute (2) Cervical lymphadenopathy Code(s): R59.0 - LOCALIZED ENLARGED LYMPH NODES Status: Acute (3) Fever Code(s): R50.9 - FEVER, UNSPECIFIED Status: Acute (4) Anemia Code(s): D64.9 - ANEMIA, UNSPECIFIED Status: Acute (5) Leukopenia Code(s): D72.819 - DECREASED WHITE BLOOD CELL COUNT, UNSPECIFIED Status: Acute - Plan cont current plan of care, plan discussed w/ family, continue antibiotics patient initially p/w nonspec c/o and fever febrile illness * with progressive leukopenia, cervical lymphadenopathy * continues despite empiric vanc, ceftriaxone, merrem * cultures (blood, urine) NGTD * apprec ID c/s - further evaluation for other illnesses sepsis * as per above * IV fluid resuscitation * closely monitor I/O anemia * with occult blood + with Fe deficiency * H/H now stable, currently hemodynamically stable * continue protonix gtt * t/c GI c/s * IVF NS@200 cc/hr persistent epigastric pain * NPO after midnight * trial GI cocktail * not responding to PPI gtt diet: as twan activity: as twan dvt ppx: SQ Review of Systems - Medications/Allergies Allergies/Adverse Reactions: Allergies Allergy/AdvReac Type Severity Reaction Status Date / Time No Known Drug Allergies Allergy Verified 10/14/17 02:18 Medications: Current Medications Acetaminophen (Tylenol) 650 mg PO Q6H PRN PRN Reason: Headache/Fever or Pain Last Admin: 10/14/17 08:01 Dose: 650 mg Hydrocodone Bitart/Acetaminophen ([place] 5/325) 1 tab PO Q4H PRN PRN Reason: Moderate Pain (4-6) Last Admin: 10/16/17 21:09 Dose: 1 tab Al Hydroxide/Mg Hydroxide (Maalox) 30 ml PO Q6H PRN PRN Reason: Heartburn or Indigestion Benzonatate (Tessalon) 100 mg PO Q4H PRN PRN Reason: Cough Bisacodyl (Dulcolax) 10 mg PO DAILYPRN PRN PRN Reason: Constipation Calcium Carbonate (Tums) 1,000 mg PO Q4H PRN PRN Reason: Heartburn or Indigestion Clonidine (Catapres) 0.1 mg PO Q4H PRN PRN Reason: Systolic BP > 160 Guaifenesin (Robitussin Sf) 200 mg PO Q4H PRN PRN Reason: Cough Hydralazine HCl (Apresoline) 10 mg SLOW IVP Q4H PRN PRN Reason: Systolic BP > 180 Ceftriaxone Sodium 2 gm/Miscellaneous Medication 1 each/ Sodium Chloride 100 mls @ 200 mls/hr IVPB Q24HR [facility] Last Admin: 10/16/17 07:56 Dose: 100 mls Meropenem 1 gm/ Sterile Water 20 mls @ 240 mls/hr SLOW IVP Q8HR [facility] Last Admin: 10/16/17 15:39 Dose: 20 mls Vancomycin HCl 1.25 gm/ Sodium (Chloride) 250 mls @ 166.667 mls/hr IVPB 0300, 0900,1500,2100 [facility] Last Admin: 10/16/17 21:03 Dose: 250 mls Sodium Chloride (Normal Saline 0.9%) 1,000 mls @ 150 mls/hr IV .Q6H40M [facility] Last Admin: 10/16/17 21:00 Dose: 1,000 mls Pantoprazole Sodium 80 mg/Miscellaneous Medication 1 each/ Sodium Chloride 100 mls @ 10 mls/hr IVP INF [facility] Last Admin: 10/16/17 12:34 Dose: 100 mls Ibuprofen (Motrin) 600 mg PO Q6H PRN PRN Reason: Fever > 101 Last Admin: 10/16/17 15:52 Dose: 600 mg Levothyroxine Sodium (Synthroid) 88 mcg PO 0600 [facility] Last Admin: 10/16/17 03:34 Dose: 88 mcg Miscellaneous Medication (Pharmacy To Dose) 1 each IVPB ASDIR [facility] Nitroglycerin (Nitrostat) 0.4 mg SL Q5MIN PRN PRN Reason: Chest Pain Last Admin: 10/14/17 07:08 Dose: 0.4 mg Ondansetron HCl (Zofran) 4 mg IVP Q6H PRN PRN Reason: Nausea/Vomiting Last Admin: 10/15/17 05:54 Dose: 4 mg Promethazine HCl (Phenergan) 12.5 mg SLOW IVP Q6H PRN PRN Reason: Nausea Last Admin: 10/15/17 10:22 Dose: 12.5 mg Senna (Senokot) 2 tab PO HSPRN PRN PRN Reason: Constipation Sodium Chloride (Flush - Normal Saline) 10 ml IVF Q12HR [facility] Last Admin: 10/16/17 21:04 Dose: Not Given Sodium Chloride (Flush - Normal Saline) 10 ml IVF PRN PRN PRN Reason: Saline Flush Tramadol HCl (Ultram) 50 mg PO Q4H PRN PRN Reason: Moderate Pain (4-6)
[2017-10-17] MEDS: Pantoprazole 80 MG, Admixture Fee 1 EACH in Sodium Chloride 0.9% 100 ML IVP SCH ×3 (01:30→23:48)
[2017-10-17] MEDS: Vancomycin HCl 1.25 GM in Sodium Chloride 0.9% 250 ML 250 ML IVPB SCH ×4 (03:08→20:34)
[2017-10-17] MEDS: Levothyroxine Sodium 88 MCG TAB PO SCH (06:00)
[2017-10-17] MEDS: Ibuprofen 600 MG TAB PO PRN (06:00)
[2017-10-17] MEDS: Sodium Chloride 0.9% 1,000 ML IV SCH ×3 (06:00→19:19)
[2017-10-17] MEDS: Meropenem 1 GM in Sterile Water 20 ML SLOW IVP SCH ×3 (06:01→21:43)
[2017-10-17 08:25] LABS: #Lymphocytes 0.4 thou/uL (1.20-3.40); #Monocytes 0.2 thou/uL (0.11-0.59); #Neutrophils 2.4 thou/uL (1.40-6.50); %Eosinophils 0.9 % (0.0-10.0); %Lymphocytes 13.6 % (21.0-51.0); %Monocytes 6.6 % (0.0-10.0); %Neutrophils 78.9 % (42.0-75.0); Hemoglobin 7.1 g/dL (12.0-16.0); MDiff Complete? YES; Mean Corpuscular HGB CONC 31.6 g/dL (32.0-36.0); Mean Corpuscular Hemoglobin 20.6 pg (27.0-31.0); Mean Platelet Volume 6.6 fL (7.4-10.4); Platelet Count 94 thou/uL (130-400); RBC Distribution Width 16.3 % (11.5-14.5); Red Blood Cell (RBC) Count 3.44 mill/uL (4.20-5.40)
[2017-10-17 08:32] LABS: Vancomycin, Trough 12.8 ug/mL
[2017-10-17 08:33] LABS: ALT (SGPT) 102 U/L (8-55); AST (SGOT) 188 U/L (5-34); Albumin 3.4 g/dL (3.5-5.0); Alkaline Phosphatase 129 U/L (40-150); Anion Gap 9 mmol/L (10-20); BUN (Urea Nitrogen) Less than 4 mg/dL (7.0-18.7); Bilirubin, Total 0.7 mg/dL (0.2-1.2); Calc. Creatinine Clearance 143 mL/min (70-130); Carbon Dioxide 26 mmol/L (22-29); Chloride 102 mmol/L (98-107); Estimated GFR-MDRD Greater than 90; Globulin 2.9 g/dL (2.4-3.5); Glucose 112 mg/dL (70-105); Protein, Total 6.3 g/dL (6.0-8.3); Sodium 134 mmol/L (136-145)
[2017-10-17] MEDS: cefTRIAXone\\ROCEPHIN 2 GM, Admixture Fee 1 EACH in Sodium Chloride 0.9% 100 ML IVPB SCH (08:50)
[2017-10-17 08:56] LABS: Potassium 2.5 mmol/L (3.5-5.1)
[2017-10-17 09:43] LABS: Hemoglobin 7.5 g/dL (12.0-16.0)
[2017-10-17 10:25] LABS: Potassium 2.8 mmol/L (3.5-5.1)
[2017-10-17 12:24] LABS: Band 32 % (5-11); Hemoglobin 7.5 g/dL (12.0-16.0); Hypochromia SLIGHT = 6-15 cells (100X) (0-5/hpf); Large Platelets SLIGHT; Lymphocytes 27 % (21-51); MDiff Complete? YES; Mean Corpuscular HGB CONC 32.5 g/dL (32.0-36.0); Mean Corpuscular Hemoglobin 21.1 pg (27.0-31.0); Mean Corpuscular Volume 64.9 fl (81.0-99.0); Mean Platelet Volume 6.4 fL (7.4-10.4); Metamyelocyte 1 % (0-0); Microcytosis SLIGHT = 6-15 cells (100X) (0-5/hpf); Monocytes 6 % (0-10); Neutrophil 34 % (42-75); Nucleated RBC 2 % (0); PLT Morphology Comment Appears Decreased; Platelet Count 114 thou/uL (130-400); Polychromasia SLIGHT = 2-3 cells (100X) (0-2/hpf); RBC Distribution Width 16.5 % (11.5-14.5); Red Blood Cell (RBC) Count 3.56 mill/uL (4.20-5.40); White Blood Cell (WBC) Count 3.8 thou/uL (4.8-10.8)
[2017-10-17] MEDS ORDERED: Potassium Chloride 20 MEQ TAB PO SCH (12:30)
--- NOTE | 2017-10-17 12:52 | ULT ---
ULTRASOUND SPLEEN: HISTORY: A 42-year-old female with a history of metastasis, prior cholecystectomy and tubal ligation. Patient with abdominal pain and vomiting. COMPARISON: Abdomen and pelvic CT scan with IV contrast 10/14/17. FINDINGS: No evidence for a splenic mass. Possible very tiny pleural effusion on the left side. No evidence f or splenomegaly. Maximum spleen length is 12.5 cm. Stable appearance from CT scan of 10/14/17. IMPRESSION: No evidence for significant splenomegaly. Possible tiny left pleural effusion. No intrasplenic mass . POS: [facility]
[2017-10-17] MEDS: HYDROcodone/Acetaminophen 5/325 mg Tablet PO PRN (16:08)
[2017-10-17] MEDS ORDERED: Morphine 5 MG/ML SYRINGE SLOW IVP PRN (16:23)
[2017-10-17] MEDS ORDERED: GoLYTELY 4,000 ml Bottle PO SCH (16:30)
--- NOTE | 2017-10-17 16:46 | PDOC.PN ---
- Subjective Encounter Start Date: 10/17/17 Encounter Start Time: 16:36 Subjective: nsg notes rev, liz ovn, no new c/o but still having progressive ADAMES -: tends to have intermittent ADAMES at home with neck cramping, current ADAMES -: similar but more severe than chronic ADAMES - Objective Vital Signs & Weight: Vital Signs (12 hours) Temp Pulse Resp BP BP Pulse Ox 10/17/17 15:30 100.4 F H 109 H 14 133/62 100 10/17/17 11:50 98.4 F 104 H 16 116/63 100 10/17/17 10:12 98.8 F 10/17/17 08:00 98.8 F 110 H 16 93 L 10/17/17 07:59 100.2 F H 110 H 16 102/52 L 93 L Weight Weight 160 lb I&O: 10/16/17 10/17/17 10/18/17 06:59 06:59 06:59 Intake Total 4686 4400 Output Total 1700 2700 Balance 2986 1700 Result Diagrams: 10/17/17 09:18 10/17/17 09:18 Phys Exam - Physical Examination Constitutional: NAD HEENT: PERRLA, moist MMs Respiratory: no wheezing, no rales, no rhonchi, clear to auscultation bilateral Cardiovascular: RRR, no significant murmur, no rub Gastrointestinal: soft, non-tender, no distention, positive bowel sounds mild discomfort to palpation LUQ Musculoskeletal: no edema, pulses present Neurological: moves all 4 limbs Psychiatric: normal affect, A&O x 3 Dx/Plan (1) Sepsis Code(s): A41.9 - SEPSIS, UNSPECIFIED ORGANISM Status: Acute (2) Cervical lymphadenopathy Code(s): R59.0 - LOCALIZED ENLARGED LYMPH NODES Status: Acute (3) Fever Code(s): R50.9 - FEVER, UNSPECIFIED Status: Acute (4) Anemia Code(s): D64.9 - ANEMIA, UNSPECIFIED Status: Acute (5) Leukopenia Code(s): D72.819 - DECREASED WHITE BLOOD CELL COUNT, UNSPECIFIED Status: Acute - Plan * patient initially p/w nonspec c/o and fever febrile illness * with leukopenia, cervical lymphadenopathy * continues despite empiric vanc, ceftriaxone, merrem * cultures (blood, urine) NGTD * apprec ID c/s * CT head r/o NPH 2/2 ADAMES sepsis * as per above * IV fluid resuscitation * closely monitor I/O anemia * with occult blood +, H/H grossly stable, pending complete hemolytic eval * apprec GI C/S - plan for EGD and colo tomorrow * continue IVF NS @200cc/hr, protonix gtt, serial CBC * D/W Dr. Chino diet: NPO after midnight, clear liq for now activity: as twan dvt ppx: SQ d/w pt and her family @ bedside Review of Systems - Medications/Allergies Allergies/Adverse Reactions: Allergies Allergy/AdvReac Type Severity Reaction Status Date / Time No Known Drug Allergies Allergy Verified 10/14/17 02:18 Medications: Current Medications Acetaminophen (Tylenol) 650 mg PO Q6H PRN PRN Reason: Headache/Fever or Pain Last Admin: 10/14/17 08:01 Dose: 650 mg Hydrocodone Bitart/Acetaminophen ([place] 5/325) 1 tab PO Q4H PRN PRN Reason: Moderate Pain (4-6) Last Admin: 10/17/17 16:08 Dose: 1 tab Al Hydroxide/Mg Hydroxide (Maalox) 30 ml PO Q6H PRN PRN Reason: Heartburn or Indigestion Benzonatate (Tessalon) 100 mg PO Q4H PRN PRN Reason: Cough Bisacodyl (Dulcolax) 10 mg PO DAILYPRN PRN PRN Reason: Constipation Calcium Carbonate (Tums) 1,000 mg PO Q4H PRN PRN Reason: Heartburn or Indigestion Clonidine (Catapres) 0.1 mg PO Q4H PRN PRN Reason: Systolic BP > 160 Guaifenesin (Robitussin Sf) 200 mg PO Q4H PRN PRN Reason: Cough Hydralazine HCl (Apresoline) 10 mg SLOW IVP Q4H PRN PRN Reason: Systolic BP > 180 Ceftriaxone Sodium 2 gm/Miscellaneous Medication 1 each/ Sodium Chloride 100 mls @ 200 mls/hr IVPB Q24HR [facility] Last Admin: 10/17/17 08:50 Dose: 100 mls Meropenem 1 gm/ Sterile Water 20 mls @ 240 mls/hr SLOW IVP Q8HR [facility] Last Admin: 10/17/17 15:44 Dose: 20 mls Vancomycin HCl 1.25 gm/ Sodium (Chloride) 250 mls @ 166.667 mls/hr IVPB 0300, 0900,1500,2100 [facility] Last Admin: 10/17/17 15:44 Dose: 250 mls Sodium Chloride (Normal Saline 0.9%) 1,000 mls @ 150 mls/hr IV .Q6H40M [facility] Last Admin: 10/17/17 15:43 Dose: 1,000 mls Pantoprazole Sodium 80 mg/Miscellaneous Medication 1 each/ Sodium Chloride 100 mls @ 10 mls/hr IVP INF [facility] Last Admin: 10/17/17 13:15 Dose: 100 mls Ibuprofen (Motrin) 600 mg PO Q6H PRN PRN Reason: Fever > 101 Last Admin: 10/17/17 06:00 Dose: 600 mg Levothyroxine Sodium (Synthroid) 88 mcg PO 0600 [facility] Last Admin: 10/17/17 06:00 Dose: 88 mcg Miscellaneous Medication (Pharmacy To Dose) 1 each IVPB ASDIR [facility] Morphine Sulfate (Morphine) 2 mg SLOW IVP Q4H PRN PRN Reason: Pain Nitroglycerin (Nitrostat) 0.4 mg SL Q5MIN PRN PRN Reason: Chest Pain Last Admin: 10/14/17 07:08 Dose: 0.4 mg Ondansetron HCl (Zofran) 4 mg IVP Q6H PRN PRN Reason: Nausea/Vomiting Last Admin: 10/15/17 05:54 Dose: 4 mg Polyethylene Glycol/Electrolytes (Golytely) 4,000 ml PO ONE [facility] Stop: 10/17/17 23:59 Promethazine HCl (Phenergan) 12.5 mg SLOW IVP Q6H PRN PRN Reason: Nausea Last Admin: 10/15/17 10:22 Dose: 12.5 mg Senna (Senokot) 2 tab PO HSPRN PRN PRN Reason: Constipation Sodium Chloride (Flush - Normal Saline) 10 ml IVF Q12HR [facility] Last Admin: 10/17/17 11:50 Dose: Not Given Sodium Chloride (Flush - Normal Saline) 10 ml IVF PRN PRN PRN Reason: Saline Flush Tramadol HCl (Ultram) 50 mg PO Q4H PRN PRN Reason: Moderate Pain (4-6)
--- NOTE | 2017-10-17 17:22 | CT ---
CT OF THE BRAIN WITHOUT CONTRAST: Comparison: None. History: Normal pressure hydrocephalus. Technique: Multiple contiguous axial images were obtained through the CT of the brain without contras t. FINDINGS: The brain is normal in morphology and attenuation without focal lesions or confluent areas of infarct ion. There is no evidence of hydrocephalus, intracranial hemorrhage or extraaxial fluid collection. The calvarium and overlying soft tissues are unremarkable. The visualized paranasal sinuses and masto id air cells are well aerated. IMPRESSION: No evidence of acute intracranial abnormality. POS: [facility]
[2017-10-17] MEDS: traMADol HCl 50 MG TAB PO PRN ×2 (17:37→21:41)
--- NOTE | 2017-10-17 18:03 | PRG ---
DATE OF SERVICE: 10/17/2017 SUBJECTIVE: Still feeling unwell with pain in the left submandibular region. Some headaches on that side and left upper quadrant abdominal tenderness. No respiratory symptoms. No dysuria. No joint symptoms. PHYSICAL EXAMINATION: VITAL SIGNS: T-max 100.4, blood pressure 133/62, pulse 109, respirations 14, O2 sat 100%, tender in left submandibular area associated with lymphadenopathy. LUNGS: With symmetric air entry. HEART: S1, S2, regular rate. ABDOMEN: With tenderness in left upper quadrant with no rebound tenderness, able to move extremities . No joint inflammatory activity noted. LABORATORY DATA: White cell count 3.8, hemoglobin 7.5, MCV 64, platelets 114,000. INR 1.2. [place]assi um 2.8. Sodium 134, AST 188, ALT 102, albumin 3.4. HIV negative. Hepatitis serology negative. Cry ptococcus antigen negative, respiratory virus PCR panel negative and number of cultures are negative. ASSESSMENT AND DISCUSSION: General malaise, anorexia, lymphadenitis with left upper quadrant abdomin al tenderness, thrombocytopenia, anemia and leukopenia. Differential diagnosis again, an acute infec tious process including Bartonella henselae versus viral infections noted before versus autoimmune pr ocess including systemic lupus erythematosus and malignancy appears to be less likely. Wait on assay s.
[2017-10-17] MEDS: Acetaminophen 325 MG TAB PO PRN (21:41)
--- NOTE | 2017-10-17 22:47 | CON ---
DATE OF CONSULTATION: 10/17/2017 CHIEF COMPLAINT: Fevers, abdominal pain. HISTORY OF PRESENT ILLNESS: Ms. Finley is a 42-year-old woman who presented with a sore lymph node und er her left jaw about a week ago to her primary care. She was started on some antibiotics; however, the symptoms persisted, along with that. She has had a pressure tight moderately severe pain in the upper abdomen below both ribs. The pain does not radiate. She has had some nausea with it, but only started vomiting a few days ago. She has had diarrhea with two liquidy stools per day over the last 2 weeks to a month. She has had fevers over the last week at least, has continued to have fevers he re in the hospital despite antibiotics. She has had no red blood in the stool. She did have a coupl e of black stools last week and no other evidence of melena. She reports heavy menstrual periods; ho wever, they only go on for 4 days at a time once a month. She gets occasional migraine headaches for which she takes Advil, but only takes this a couple times per month. More often she takes Tylenol. Her pain initially lasted for a short period every few days, but over the last week that her abdomin al pain has been continuous from morning to night. PAST MEDICAL HISTORY: Hypothyroidism. PAST SURGICAL HISTORY: Cholecystectomy, , tubal ligation. FAMILY HISTORY: Negative for GI malignancy. SOCIAL HISTORY: No alcohol, tobacco, or drugs. ALLERGIES: No known drug allergies. MEDICATIONS AT HOME: Ceftriaxone, levothyroxine, meropenem, pantoprazole, currently being given as a drip, vancomycin. She has been on levothyroxine at home and she did take cefdinir for a few days pr ior to admission. REVIEW OF SYSTEMS: Negative x10 systems reviewed except as stated in the history of present illness. PHYSICAL EXAMINATION: VITAL SIGNS: Temperature currently 100.4. She has been spiking up to 103 over the last few days. P ulse 109, blood pressure 133/62. Her blood pressures were running lower earlier in the week and she required multiple fluid boluses to the intermittent blood pressure down to the 80s. EYES: Have no scleral icterus. OROPHARYNX: Clear without lesions. She has a tender palpable lymph node below the angle of the left mandible, which seems mobile and was not significantly enlarged per recent imaging. LUNGS: Her lungs are clear to auscultation bilaterally. HEART: Regular rate and rhythm. Tachycardic S1, S2. ABDOMEN: Soft. She is tender in the upper abdomen bilaterally without guarding. Bowel sounds are p resent. EXTREMITIES: No lower extremity edema. NEUROLOGIC: Cranial nerves are grossly intact. LABORATORY DATA: White blood cell count 3.8, hemoglobin 7.5, MCV 64, platelets 114. INR 1.2. Iron 15, TIBC 423, bilirubin 0.7, AST 188, ALT 102, alkaline phosphatase 129, LDH 880, albumin 3.4, lipase 27. B12 and folate were normal. Acute viral hepatitis screen was negative. HIV was negative. Spl enic ultrasound, which was unremarkable. CT scan of the chest, abdomen, and pelvis on 10/14/2017, wa s unremarkable. Blood and urine cultures have been negative. IMPRESSION: 1. Febrile illness with fevers to 103 without source identified at this point. 2. Tender mildly enlarged lymph node into the left jaw. 3. Pancytopenia with microcytic anemia 4. Iron deficiency would most likely be to menstrual blood loss; however, GI source should be consid ered. 5. Bilateral upper abdominal pain with nausea. She did have vomiting earlier in the week and no ove rt gastrointestinal blood loss. 6. Diarrhea with two liquidy stools per day over the last couple of weeks. 7. Abnormal liver function test. She has elevated transaminases with hepatocellular injury pattern. She does not drink alcohol. Her viral hepatitis screen is negative, if she does take some Tylenol, but minimal NSAID use. RECOMMENDATIONS: 1. Check stool studies. 2. We will check tissue transglutaminase antibody and H. pylori and ferritin. 3. EGD and colonoscopy tomorrow. 4. Dr. Ugarte sent additional infectious workup for the fever. 5. The elevated liver tests are likely secondary process. I will send additional labs to further ev aluate for primary source for elevated liver tests, but this is not likely.
[2017-10-18] MEDS: Sodium Chloride 0.9% 1,000 ML IV SCH (02:40)
[2017-10-18] MEDS: Vancomycin HCl 1.25 GM in Sodium Chloride 0.9% 250 ML 250 ML IVPB SCH ×4 (02:40→20:35)
[2017-10-18] MEDS: traMADol HCl 50 MG TAB PO PRN (02:48)
[2017-10-18] MEDS: Ibuprofen 600 MG TAB PO PRN ×2 (02:48→22:29)
[2017-10-18] MEDS: Levothyroxine Sodium 88 MCG TAB PO SCH (02:48)
[2017-10-18] MEDS: Ondansetron HCl/PF 4 MG/2 ML Vial IVP PRN ×2 (02:57→09:49)
[2017-10-18 05:29] LABS: ALT (SGPT) 99 U/L (8-55); AST (SGOT) 173 U/L (5-34); Albumin 3.2 g/dL (3.5-5.0); Alkaline Phosphatase 149 U/L (40-150); Anion Gap 12 mmol/L (10-20); BUN (Urea Nitrogen) 5 mg/dL (7.0-18.7); Bilirubin, Total 0.8 mg/dL (0.2-1.2); Calc. Creatinine Clearance 162 mL/min (70-130); Calcium 7.7 mg/dL (7.8-10.44); Carbon Dioxide 22 mmol/L (22-29); Chloride 101 mmol/L (98-107); Estimated GFR-MDRD Greater than 90; Globulin 2.7 g/dL (2.4-3.5); Glucose 93 mg/dL (70-105); Protein, Total 5.9 g/dL (6.0-8.3); Sodium 132 mmol/L (136-145)
[2017-10-18 05:31] LABS: Potassium 2.8 mmol/L (3.5-5.1)
[2017-10-18] MEDS: Meropenem 1 GM in Sterile Water 20 ML SLOW IVP SCH ×3 (05:45→22:30)
[2017-10-18 05:52] LABS: #Lymphocytes 0.6 thou/uL (1.20-3.40); #Monocytes 0.4 thou/uL (0.11-0.59); #Neutrophils 2.9 thou/uL (1.40-6.50); %Basophils 0.4 % (0.0-1.0); %Eosinophils 0.9 % (0.0-10.0); %Lymphocytes 15.5 % (21.0-51.0); %Monocytes 9.5 % (0.0-10.0); %Neutrophils 73.6 % (42.0-75.0); Hemoglobin 6.7 g/dL (12.0-16.0); MDiff Complete? YES; Mean Corpuscular HGB CONC 32.7 g/dL (32.0-36.0); Mean Corpuscular Hemoglobin 21.2 pg (27.0-31.0); Mean Corpuscular Volume 64.8 fl (81.0-99.0); Mean Platelet Volume 6.1 fL (7.4-10.4); Microcytosis SLIGHT = 6-15 cells (100X) (0-5/hpf); PLT Morphology Comment Appears Decreased; Platelet Count 114 thou/uL (130-400); RBC Distribution Width 16.8 % (11.5-14.5); Red Blood Cell (RBC) Count 3.18 mill/uL (4.20-5.40); White Blood Cell (WBC) Count 3.9 thou/uL (4.8-10.8)
[2017-10-18] MEDS ORDERED: Sodium Chloride 0.9% 1,000 ML IV SCH (06:06)
[2017-10-18] MEDS ORDERED: Potassium Chloride 20 MEQ/100 ML PREMIX BAG IVPB SCH (06:15)
[2017-10-18] MEDS: NS 0.9% w/ 40 MEQ KCL 1,000 ML IV SCH ×3 (06:47→20:35)
[2017-10-18] MEDS ORDERED: Potassium Chloride 20 MEQ TAB PO SCH (08:00)
[2017-10-18] MEDS: Potassium Chloride 20 MEQ in Sodium Chloride 0.9% 250 ML 250 ML IVPB SCH ×2 (09:06→11:22)
[2017-10-18] MEDS: cefTRIAXone\\ROCEPHIN 2 GM, Admixture Fee 1 EACH in Sodium Chloride 0.9% 100 ML IVPB SCH (11:21)
--- NOTE | 2017-10-18 11:25 | PDOC.PN ---
- Subjective Encounter Start Date: 10/18/17 Encounter Start Time: 11:25 Subjective: nsg notes rev, patient's & son @ Bedside - no new c/o but still has -: nausea, fever, epigastric pain - Objective Vital Signs & Weight: Vital Signs (12 hours) Temp Pulse Resp BP Pulse Ox 10/18/17 08:00 98.5 F 92 18 10/18/17 07:29 98.5 F 92 18 100/59 L 95 10/18/17 04:05 100 F H 10/18/17 02:41 102.1 F H 114 H 18 115/63 95 10/17/17 23:58 101.8 F H 111 H 16 112/57 L 94 L Weight Weight 160 lb I&O: 10/17/17 10/18/17 10/19/17 06:59 06:59 06:59 Intake Total 4400 4757.6 Output Total 2700 400 Balance 1700 4357.6 Result Diagrams: 10/19/17 04:42 10/19/17 04:42 Phys Exam - Physical Examination Constitutional: NAD HEENT: PERRLA, moist MMs, sclera anicteric pale mucous membranes Neck: no nodes, no JVD Respiratory: no wheezing, no rales, no rhonchi, clear to auscultation bilateral Cardiovascular: RRR, no significant murmur, no rub Gastrointestinal: soft, non-tender, no distention, positive bowel sounds Musculoskeletal: no edema LUE swelling of hand around site of prior PIV placement Neurological: moves all 4 limbs Psychiatric: normal affect, A&O x 3 Dx/Plan (1) Sepsis Code(s): A41.9 - SEPSIS, UNSPECIFIED ORGANISM Status: Acute (2) Cervical lymphadenopathy Code(s): R59.0 - LOCALIZED ENLARGED LYMPH NODES Status: Acute (3) Fever Code(s): R50.9 - FEVER, UNSPECIFIED Status: Acute (4) Anemia Code(s): D64.9 - ANEMIA, UNSPECIFIED Status: Acute (5) Leukopenia Code(s): D72.819 - DECREASED WHITE BLOOD CELL COUNT, UNSPECIFIED Status: Acute - Plan * patient initially p/w nonspec c/o abd pain, nausea and fever febrile illness * with leukopenia, cervical lymphadenopathy * continues despite empiric vanc, ceftriaxone, merrem * cultures (blood, urine) NGTD, viral panels so far NEG, imaging including CT head w/o contrast, CTA chest/ abd/ pelv all NEG * apprec ID c/s * Question if this is noninfectious and access service representative of a rheumatological spectrum disorder - plan to follow through pending labs, GI evaluation for anemia (see below). Initially on admission there was discussion of an oncologic process but the rapid onset of syndromes makes this less likely in the ddx sepsis - question if this is access service representative of true sepsis with infectious source VS SIRS from a non-infectious process; please see discussion above * sepsis has not been fully ruled out YET * IV fluid as patient is having poor PO intake 2/2 nausea * closely monitor I/O anemia * with occult blood +, H/H grossly stable, pending complete hemolytic eval * apprec GI C/S - plan for EGD and colo today * continue IVF NS @200cc/hr, protonix gtt, serial CBC LUE/ L hand swelling * appears to be most c/w thrombophlebitis from prior PIV placement * conservative symptomatic management, check US LUE to r/o DVT diet: NPO pending EGD, colo activity: as twan dvt ppx: SQ d/w pt and her family @ bedside using bedside hospital cook phone. Greater than 45 minutes spent at bedside explaining the current plan of care including the rationale behind the current course of evaluation and treatment Review of Systems - Medications/Allergies Allergies/Adverse Reactions: Allergies Allergy/AdvReac Type Severity Reaction Status Date / Time No Known Drug Allergies Allergy Verified 10/14/17 02:18 Medications: Current Medications Acetaminophen (Tylenol) 650 mg PO Q6H PRN PRN Reason: Headache/Fever or Pain Last Admin: 10/17/17 21:41 Dose: 650 mg Hydrocodone Bitart/Acetaminophen ([place] 5/325) 1 tab PO Q4H PRN PRN Reason: Moderate Pain (4-6) Last Admin: 10/17/17 16:08 Dose: 1 tab Al Hydroxide/Mg Hydroxide (Maalox) 30 ml PO Q6H PRN PRN Reason: Heartburn or Indigestion Benzonatate (Tessalon) 100 mg PO Q4H PRN PRN Reason: Cough Bisacodyl (Dulcolax) 10 mg PO DAILYPRN PRN PRN Reason: Constipation Calcium Carbonate (Tums) 1,000 mg PO Q4H PRN PRN Reason: Heartburn or Indigestion Clonidine (Catapres) 0.1 mg PO Q4H PRN PRN Reason: Systolic BP > 160 Guaifenesin (Robitussin Sf) 200 mg PO Q4H PRN PRN Reason: Cough Hydralazine HCl (Apresoline) 10 mg SLOW IVP Q4H PRN PRN Reason: Systolic BP > 180 Ceftriaxone Sodium 2 gm/Miscellaneous Medication 1 each/ Sodium Chloride 100 mls @ 200 mls/hr IVPB Q24HR [facility] Last Admin: 10/17/17 08:50 Dose: 100 mls Meropenem 1 gm/ Sterile Water 20 mls @ 240 mls/hr SLOW IVP Q8HR [facility] Last Admin: 10/18/17 05:45 Dose: 20 mls Vancomycin HCl 1.25 gm/ Sodium (Chloride) 250 mls @ 166.667 mls/hr IVPB 0300, 0900,1500,2100 [facility] Last Admin: 10/18/17 02:40 Dose: 250 mls Potassium Chloride/Sodium Chloride (Ns 0.9% W/ 40 Meq Kcl) 1,000 mls @ 150 mls/ hr IV .Q6H40M [facility] Last Admin: 10/18/17 06:47 Dose: 1,000 mls Ibuprofen (Motrin) 600 mg PO Q6H PRN PRN Reason: Fever > 101 Last Admin: 10/18/17 02:48 Dose: 600 mg Levothyroxine Sodium (Synthroid) 88 mcg PO 0600 [facility] Last Admin: 10/18/17 02:48 Dose: 88 mcg Miscellaneous Medication (Pharmacy To Dose) 1 each IVPB [facility]IR [facility] Morphine Sulfate (Morphine) 2 mg SLOW IVP Q4H PRN PRN Reason: Pain Last Admin: 10/17/17 23:55 Dose: 2 mg Nitroglycerin (Nitrostat) 0.4 mg SL Q5MIN PRN PRN Reason: Chest Pain Last Admin: 10/14/17 07:08 Dose: 0.4 mg Ondansetron HCl (Zofran) 4 mg IVP Q6H PRN PRN Reason: Nausea/Vomiting Last Admin: 10/18/17 09:49 Dose: 4 mg Pantoprazole Sodium (Protonix) 40 mg IVP Q12HR [facility] Promethazine HCl (Phenergan) 12.5 mg SLOW IVP Q6H PRN PRN Reason: Nausea Last Admin: 10/15/17 10:22 Dose: 12.5 mg Senna (Senokot) 2 tab PO HSPRN PRN PRN Reason: Constipation Sodium Chloride (Flush - Normal Saline) 10 ml IVF Q12HR [facility] Last Admin: 10/18/17 09:13 Dose: Not Given Sodium Chloride (Flush - Normal Saline) 10 ml IVF PRN PRN PRN Reason: Saline Flush Sodium Chloride (Flush - Normal Saline) 10 ml IVF PRN PRN PRN Reason: Saline Flush Tramadol HCl (Ultram) 50 mg PO Q4H PRN PRN Reason: Moderate Pain (4-6) Last Admin: 10/18/17 02:48 Dose: 50 mg
[2017-10-18] MEDS ORDERED: Acetaminophen 650 MG Suppository PR PRN (12:37)
--- NOTE | 2017-10-18 14:55 | ULT ---
LEFT UPPER EXTREMITY VENOUS DUPLEX ULTRASOUND INCLUDING COLOR AND SPECTRAL DOPPLER IMAGING: HISTORY: A 42-year-old female with left upper extremity edema and swelling. TECHNIQUE: Exam performed, including left internal jugular, subclavian, axillary, brachial, and radial and ulnar veins. Left cephalic and basilic veins are also evaluated. FINDINGS: There is phasic flow with normal compressibility and normal augmentation at all levels. No intralumi nal thrombus. IMPRESSION: No evidence for deep venous thrombosis. POS: [facility]
[2017-10-18] MEDS ORDERED: Lidocaine 1% PF 5 ML VIAL ONE (15:19)
[2017-10-18] MEDS ORDERED: Ondansetron HCl/PF 4 MG/2 ML Vial ONE (15:19)
[2017-10-18] MEDS ORDERED: PHENYLEPHRINE-NS 100 MCG/ML 10 ML SYRINGE ONE (15:19)
[2017-10-18] MEDS ORDERED: Diprivan 40 ML ONE (18:21)
[2017-10-18] MEDS ORDERED: Promethazine HCl 25 MG/ML VIAL SLOW IVP PRN (19:17)
[2017-10-18] MEDS ORDERED: Ondansetron HCl/PF 4 MG/2 ML Vial IVP PRN (19:17)
[2017-10-18] MEDS ORDERED: Meperidine HCl/PF 25 MG/ML VIAL SLOW IVP PRN (19:17)
[2017-10-18] MEDS ORDERED: Pantoprazole 40 MG VIAL IVP SCH (21:00)
--- NOTE | 2017-10-18 21:01 | PRG ---
DATE OF SERVICE: 10/18/2017 SUBJECTIVE: Continues with high temperature elevation, pretty much the same symptoms with lymphadeni tis associated the pain. A little bit of tenderness in the abdominal area, particularly on the left upper quadrant. She is going for an EGD and colonoscopy today. Little bit of cough, but not much re spiratory symptoms. She has pain in the entire back area, mostly in the muscles. She has pain in th e joints, particularly in the knees, ankles, a little bit in the wrist. PHYSICAL EXAMNATION: VITAL SIGNS: T-max 103, blood pressure 120/60, pulse 107, respirations 16, O2 sat 100% on 2 liters. GENERAL: Appears awake and alert. She denies headache at this time. HEENT: Ocular movements are conjugate. Pupils are equal. Oral cavity normal. LYMPH: The lymphadenitis particularly on the left side. LUNGS: With symmetric air entry. HEART: S1 and S2, regular rate. ABDOMEN: With mild tenderness left upper quadrant. MUSCULOSKELETAL: She has tenderness on joint, mobility of the knees and hips and ankles. LABORATORY DATA: White cell count 3.9, hemoglobin 6.7, MCV 64, platelets 114,000, and 73% neutrophil s. Sodium 132, creatinine 0.53 with AST 173, ALT 99, albumin 3.2, and all the serologies submitted a re not resulted, I called the Laboratory, they said, it will take another 2 days probably. She had a vascular ultrasound, which showed no evidence of deep vein thrombosis. She had a brain CT yesterday with no abnormalities. ASSESSMENT: Lymphadenopathy with thrombocytopenia, anemia, leukopenia, and abnormal liver function t ests markedly elevated ferritin. All the cultures have been negative and the respiratory virus PCR p dallin negative as well. The differential diagnosis again were leaning towards more of an autoimmune p rocess and the two main considerations are include systemic lupus erythematosus versus adult Still's disease. We will start corticosteroids at this point in time and will see with EGD and colonoscopy s how the diagnosis of adult Still's disease evidently is a diagnosis of exclusion in the phase of cer tain criteria including the presence of arthritis, persistent fever, the rash sometimes is present an d other minor criteria, which she has most of them. Evidently if this antinuclear antibody serology was positive then we will establish the diagnosis of systemic lupus erythematosus depending on the pr ofile pattern. If it is negative, then I would be inclined more towards the adult Still's disease.
--- NOTE | 2017-10-18 23:39 | OP ---
DATE OF PROCEDURE: 10/18/2017 PROCEDURE: Esophagogastroduodenoscopy with biopsy and colonoscopy with biopsy. PREOPERATIVE DIAGNOSES: Anemia, epigastric pain, and diarrhea. OPERATIVE NOTE: Informed consent was obtained from the patient. She was sedated with total intraven ous anesthesia. The bite block was placed and the endoscope was advanced easily to the second portio n of the duodenum and retroflexion was performed in the stomach. The esophagus was normal. The GE j unction was normal. The stomach had benign appearing 5-9 mm polyps in the proximal body and fundus. Biopsies were obtained to rule out adenomatous changes. These are likely hyperplastic or fundic gla nd polyps. Carcinoid unlikely. The remainder of the colonic mucosa was normal. The pylorus and fir st and second portions of the duodenum were normal. Biopsies were taken from the duodenum to rule ou t celiac disease. Air was suctioned from the stomach. The patient was turned around. Rectal exam w as performed and was normal. The colonoscope was advanced to the terminal ileum without difficulty. The mucosa of the terminal ileum was normal. The preparation quality was fair. The ileocecal valve and appendiceal orifice were clearly identified. The colonic mucosa was normal throughout. Retrofl exed views in the rectum were normal. Random colon biopsies were taken from the right and left colon to rule out microscopic colitis. IMPRESSION: 1. Few polyps in the gastric body and fundus measuring 5-9 mm. These are likely hyperplastic or fun dic gland polyps, biopsied. 2. Otherwise normal esophagogastroduodenoscopy. Duodenal biopsies taken to rule out celiac disease. 3. Normal colonoscopy to the terminal ileum. Random colon biopsies taken to rule out microscopic co litis. RECOMMENDATIONS: 1. Await histopathology. 2. Follow up in the office in 2-4 weeks. Await labs ordered yesterday. 3. Repeat colonoscopy at age 52 for screening. 4. I will sign off. Please call if GI can help.
[2017-10-19] MEDS: Vancomycin HCl 1.25 GM in Sodium Chloride 0.9% 250 ML 250 ML IVPB SCH (03:08)
[2017-10-19] MEDS: NS 0.9% w/ 40 MEQ KCL 1,000 ML IV SCH ×3 (03:09→18:42)
[2017-10-19 05:30] LABS: #Lymphocytes 0.9 thou/uL (1.20-3.40); #Monocytes 0.4 thou/uL (0.11-0.59); #Neutrophils 3.8 thou/uL (1.40-6.50); %Basophils 0.8 % (0.0-1.0); %Eosinophils 0.5 % (0.0-10.0); %Lymphocytes 17.7 % (21.0-51.0); %Monocytes 7.6 % (0.0-10.0); %Neutrophils 73.4 % (42.0-75.0); Mean Corpuscular HGB CONC 31.1 g/dL (32.0-36.0); Mean Corpuscular Hemoglobin 20.4 pg (27.0-31.0); Mean Corpuscular Volume 65.7 fl (81.0-99.0); Mean Platelet Volume 6.4 fL (7.4-10.4); Platelet Count 117 thou/uL (130-400); RBC Distribution Width 17.3 % (11.5-14.5); Red Blood Cell (RBC) Count 3.42 mill/uL (4.20-5.40); White Blood Cell (WBC) Count 5.2 thou/uL (4.8-10.8)
[2017-10-19 05:46] LABS: ALT (SGPT) 83 U/L (8-55); AST (SGOT) 125 U/L (5-34); Albumin 3.2 g/dL (3.5-5.0); Alkaline Phosphatase 143 U/L (40-150); Anion Gap 10 mmol/L (10-20); BUN (Urea Nitrogen) 4 mg/dL (7.0-18.7); Bilirubin, Total 0.5 mg/dL (0.2-1.2); Calc. Creatinine Clearance 159 mL/min (70-130); Calcium 8.1 mg/dL (7.8-10.44); Carbon Dioxide 21 mmol/L (22-29); Chloride 107 mmol/L (98-107); Estimated GFR-MDRD Greater than 90; Globulin 3.1 g/dL (2.4-3.5); Glucose 133 mg/dL (70-105); Potassium 4.1 mmol/L (3.5-5.1); Protein, Total 6.3 g/dL (6.0-8.3); Sodium 134 mmol/L (136-145)
[2017-10-19] MEDS: Meropenem 1 GM in Sterile Water 20 ML SLOW IVP SCH (06:04)
[2017-10-19] MEDS: Levothyroxine Sodium 88 MCG TAB PO SCH (06:04)
[2017-10-19] MEDS: Pantoprazole 80 MG, Admixture Fee 1 EACH in Sodium Chloride 0.9% 100 ML IVP SCH (08:45)
[2017-10-19 08:46] LABS: Vancomycin, Trough 9.9 ug/mL
[2017-10-19] MEDS: cefTRIAXone\\ROCEPHIN 2 GM, Admixture Fee 1 EACH in Sodium Chloride 0.9% 100 ML IVPB SCH (09:29)
[2017-10-19 12:14] LABS: Bartonella henselae IgG Negative titer (Neg:<1:320); Bartonella henselae IgM Negative titer (Neg:<1:100); Bartonella quintana IgG Negative titer (Neg:<1:320); Bartonella quintana IgM Negative titer (Neg:<1:100)
--- NOTE | 2017-10-19 12:37 | PDOC.PN ---
- Subjective Encounter Start Date: 10/19/17 Encounter Start Time: 15:38 CC; Abodminal pain sub: pt c/o mild abdominal pain - Objective Vital Signs & Weight: Vital Signs (12 hours) Temp Pulse Resp BP Pulse Ox 10/19/17 11:10 97.4 F L 77 16 123/75 98 10/19/17 07:25 97.8 F 78 16 106/57 L 99 10/19/17 07:16 97.8 F 78 16 98 10/19/17 03:40 97.8 F 75 16 95/55 L 97 Weight Weight 160 lb I&O: 10/18/17 10/19/17 10/20/17 06:59 06:59 06:59 Intake Total 4757.6 4915 Output Total 400 2450 Balance 4357.6 2465 Result Diagrams: 10/19/17 04:42 10/19/17 04:42 Dx/Plan - Plan Physical Examination Constitutional: NAD, sitting on bed HEENT: PERRLA, moist MMs, sclera anicteric pale mucous membranes Neck: no nodes, no JVD Respiratory: no wheezing, no rales, no rhonchi, clear to auscultation bilateral Cardiovascular: RRR, no significant murmur, no rub Gastrointestinal: soft, non-tender, no distention, positive bowel sounds Musculoskeletal: no edema LUE swelling of hand around site of prior PIV placement Neurological: moves all 4 limbs, follows commands Psychiatric: normal affect, A&O x 3 Dx/Plan (1) Sepsis Code(s): A41.9 - SEPSIS, UNSPECIFIED ORGANISM Status: Acute (2) Cervical lymphadenopathy Code(s): R59.0 - LOCALIZED ENLARGED LYMPH NODES Status: Acute (3) Fever Code(s): R50.9 - FEVER, UNSPECIFIED Status: Acute (4) Anemia Code(s): D64.9 - ANEMIA, UNSPECIFIED Status: Acute (5) Leukopenia Code(s): D72.819 - DECREASED WHITE BLOOD CELL COUNT, UNSPECIFIED Status: Acute - Plan * patient initially p/w nonspec c/o abd pain, nausea and fever Sepsis + febrile illness * with leukopenia, cervical lymphadenopathy * continues despite empiric vanc, ceftriaxone, merrem * cultures (blood, urine) NGTD, viral panels so far NEG, imaging including CT head w/o contrast, CTA chest/ abd/ pelv all NEG * apprec ID c/s * will consult Onc to evaluate patient. anemia * with occult blood +, H/H grossly stable, pending complete hemolytic eval * apprec GI C/S - s/p egd and colonoscopy, no active bleed seen * will consult onc to evaluate patient LUE/ L hand swelling * appears to be most c/w thrombophlebitis from prior PIV placement * conservative symptomatic management, check US LUE to r/o DVT activity: as twan dvt ppx: SQ will transfer patient to tele
--- NOTE | 2017-10-19 13:55 | PRG ---
DATE OF SERVICE: 10/19/2017 She is sitting up, feeling better. Headache, resolved. No dyspnea, feeling tired after mild effort, less abdominal pain, no diarrhea. PHYSICAL EXAMINATION: VITAL SIGNS: Temperature curve has improved markedly. Blood pressure 120/70, pulse 77, respirations 16, O2 sat 98%. GENERAL: Appears much improved. HEENT: Ocular movements are conjugate. LUNGS: Clear. HEART: S1, S2, regular rate. ABDOMEN: Soft. Less tenderness. EXTREMITIES: Moves all extremities equally. LABORATORY: White cell count up to 5.2, hemoglobin 10.0, MCV 65, platelets 117, creatinine 0.54, sod ium 134, AST 125, ALT 83, albumin 3.2. Bartonella negative. Serology, CMV pending. Complement norm al. SUZIE pending. EGD and colonoscopy were not particularly remarkable. ASSESSMENT AND DISCUSSION: Lymphadenopathy fever, arthralgias, pancytopenia. In view of the marked response to corticosteroids it becomes even more likely that the patient has an autoimmune phenomenon causing clinical presentation. Discontinue antimicrobials. Continue corticosteroids. Wait on sero logies to return. Again, differential diagnosis includes systemic lupus versus adult Still's disease , usually lupus responds better to steroids than adult Still's disease.
[2017-10-19 14:26] LABS: EBV Early Antigen (EA) IgG AB <9.0 U/mL (0.0-8.9); EBV VCA IgM <36.0 U/mL (0.0-35.9); Nuclear AG IgG (EBNA) AB 32.8 U/mL (0.0-17.9)
--- NOTE | 2017-10-19 17:38 | ULT ---
LEFT UPPER EXTREMITY VENOUS DUPLEX ULTRASOUND INCLUDING COLOR AND SPECTRAL DOPPLER IMAGIN10/19/17 HISTORY: 42-year-old female with left upper extremity swelling and edema. Left arm pain. COMPARISON: Comparison is made to 10/18/17 study. The visualized left internal jugular, subclavian, axillary, brachial, radial and ulnar veins show pha sic flow with normal compressibility and normal augmentation. The cephalic and basilic veins show pha sic flow without evidence for intraluminal thrombus. IMPRESSION: No evidence for left upper extremity deep venous thrombosis. Stable from prior study of yesterday. POS: [facility]
[2017-10-19 20:25] LABS: dsDNA IgG Antibody Less than 0.5 IU/mL (<10 Negative)
[2017-10-19 21:01] LABS: ANA Symphony (Qualitative) Negative (Negative); ANA Symphony (Quantitative) 0.1 Ratio (<0.7 Negative)
[2017-10-19 22:12] LABS: Epstein Barr Virus PCR Negative (Negative)
[2017-10-19] MEDS: traMADol HCl 50 MG TAB PO PRN (23:56)
[2017-10-20 04:49] LABS: ALT (SGPT) 66 U/L (8-55); AST (SGOT) 63 U/L (5-34); Albumin 3.3 g/dL (3.5-5.0); Alkaline Phosphatase 129 U/L (40-150); Anion Gap 12 mmol/L (10-20); BUN (Urea Nitrogen) 8 mg/dL (7.0-18.7); Bilirubin, Total 0.5 mg/dL (0.2-1.2); Calc. Creatinine Clearance 153 mL/min (70-130); Calcium 8.5 mg/dL (7.8-10.44); Carbon Dioxide 18 mmol/L (22-29); Chloride 108 mmol/L (98-107); Estimated GFR-MDRD Greater than 90; Globulin 3.1 g/dL (2.4-3.5); Glucose 164 mg/dL (70-105); Potassium 4.6 mmol/L (3.5-5.1); Protein, Total 6.4 g/dL (6.0-8.3); Sodium 133 mmol/L (136-145)
[2017-10-20 05:21] LABS: Band 18 % (5-11); Hemoglobin 7.3 g/dL (12.0-16.0); Lymphocytes 12 % (21-51); MDiff Complete? YES; Mean Corpuscular Hemoglobin 20.7 pg (27.0-31.0); Mean Platelet Volume 6.7 fL (7.4-10.4); Metamyelocyte 3 % (0-0); Microcytosis SLIGHT = 6-15 cells (100X) (0-5/hpf); Monocytes 10 % (0-10); Myelocyte 4 % (0-0); Neutrophil 53 % (42-75); Platelet Count 177 thou/uL (130-400); RBC Distribution Width 17.6 % (11.5-14.5); Red Blood Cell (RBC) Count 3.53 mill/uL (4.20-5.40); White Blood Cell (WBC) Count 10.4 thou/uL (4.8-10.8)
[2017-10-20] MEDS: Levothyroxine Sodium 88 MCG TAB PO SCH (06:01)
[2017-10-20] MEDS: cefTRIAXone\\ROCEPHIN 2 GM, Admixture Fee 1 EACH in Sodium Chloride 0.9% 100 ML IVPB SCH (08:48)
[2017-10-20] MEDS: NS 0.9% w/ 40 MEQ KCL 1,000 ML IV SCH ×2 (09:02)
--- NOTE | 2017-10-20 10:54 | PDOC.PN ---
- Subjective Encounter Start Date: 10/20/17 Encounter Start Time: 11:30 Subjective: Patient still with abdominal pain. Improving slowly. No more fever. - Objective MAR Reviewed: Yes Vital Signs & Weight: Vital Signs (12 hours) Temp Pulse Resp BP Pulse Ox 10/20/17 07:27 97.0 F L 78 16 112/72 97 10/20/17 07:25 97.0 F L 78 16 97 10/20/17 04:00 81 18 107/68 95 10/19/17 23:58 98.6 F 87 16 112/72 98 Weight Weight 160 lb 2 oz I&O: 10/19/17 10/20/17 10/21/17 06:59 06:59 06:59 Intake Total 4915 5410 Output Total 2450 Balance 2465 5410 Result Diagrams: 10/20/17 03:24 10/20/17 03:24 Phys Exam - Physical Examination Constitutional: NAD HEENT: moist MMs left neck with adenopathy Respiratory: no wheezing, no rales, no rhonchi Cardiovascular: RRR, no significant murmur Gastrointestinal: soft, positive bowel sounds mild TTP Neurological: non-focal, moves all 4 limbs Psychiatric: normal affect, A&O x 3 Dx/Plan (1) Sepsis Code(s): A41.9 - SEPSIS, UNSPECIFIED ORGANISM Status: Resolved Comment: Afebrile for 24 hours. Cultures negative. Responded to steroids-->likely autoimmune dz Still's disease. Abx d/c'd. Appreciate Dr. Ugarte' imput. 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 Will try and get rheumatology imput. Going to be difficult due to uninsured status. (3) Thrombophlebitis arm Code(s): I80.8 - PHLEBITIS AND THROMBOPHLEBITIS OF OTHER SITES Status: Acute Comment: U/S neg for DVT in UE (4) Anemia Code(s): D64.9 - ANEMIA, UNSPECIFIED Status: Acute Qualifiers: Bone marrow failure anemia type: pancytopenia, other Comment: Due to Still's disease, neg endoscopy, monitor for improvement with steroids. (5) Cervical lymphadenopathy Code(s): R59.0 - LOCALIZED ENLARGED LYMPH NODES Status: Acute Comment: due to Still's disease - Plan cont current plan of care D/C all antibiotics * . - Discharge Day Encounter end time: 12:00
--- NOTE | 2017-10-20 12:47 | PRG ---
DATE OF SERVICE: 10/20/2017 SUBJECTIVE: She is feeling better, a little bit of pain last night, but now she has no pain, maybe m ild abdominal pain in the upper segments. A little bit of cough, but it is better now. No back pain , no headaches, breathing well. No sore throat. The areas of lymphadenitis are improved. PHYSICAL EXAMINATION: VITAL SIGNS: Normal temperature, blood pressure 118/72, pulse 83, respirations 16-20, O2 sat 97% zabrina m air. GENERAL: No distress, pleasant. LUNGS: Clear. CARDIOVASCULAR: S1, S2, regular rate. ABDOMEN: Only mild tenderness in the upper segments of the abdomen on percussion. No ascites, no organomegaly noted. EXTREMITIES: Moves all extremities equally. LABORATORY DATA: White cell count 10.4, hemoglobin 7.3, MCV 767, platelets up to 177,000, 52% neutro phils, 18% bands. Sodium 133, creatinine 0.56, AST down to 63, ALT 66. The antinuclear antibody nicole el was negative. The CMV DNA PCR is still pending, but the EBV serology consistent with prior infect ion, but no acute infection. All the cultures are negative. ASSESSMENT AND DISCUSSION: Lymphadenitis, fever, arthralgias, pancytopenia with clear cut response t o corticosteroids with improvement of the leukopenia, thrombocytopenia and anemia, as well as symptom atic improvement, resolution of fever. 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 Switch to oral corticosteroids. Discontinue all antimicrobials. May transfer to floor. Will need rheumatology evaluation.
[2017-10-20 14:29] LABS: A1 Antitrypsin Phenotype Inter MS (.); Alpha-1-Antitrypsin 184 mg/dL (90-200); Transglutaminase IgA ABS Less than 2 U/mL (0-3)
[2017-10-20 14:29] LABS: CMV DNA-PCR Test Negative (Negative)
[2017-10-20 16:15] LABS: Mitochondrial (M2) Antibody 5.8 Units (0.0-20.0); Smooth Muscle Total ABS 8 Units (0-19)
--- NOTE | 2017-10-20 18:25 | CON ---
DATE OF CONSULTATION: 10/20/2017 REASON FOR CONSULTATION: Pancytopenia. HISTORY OF PRESENT ILLNESS: Ms. Finley is a 42-year-old female, who presented with a sore lymph node and fever to her primary care. She was having abdominal pain with diarrhea. She was sent to the emergency room for evaluation. CT of the chest, abdomen, and pelvis was unremarkable. CBC on admission showed a white count of 5.0 with 85% neutrophils and 9% lymphocytes. Her hemoglobin was 9.4 and platelet count was 212,000. Over the next few days, she became pancytopenic with white count of 3.1, hemoglobin of 7.5 and platelet count of 128,000. There was concern over bloody stools. She was worked up by Dr. Chino and GI workup was negative. Dr. Ugarte is seeing the patient and feels that she likely has an autoimmune disorder and in fact was started on corticosteroids. Since beginning the steroids, her CBC has improved. She now has a white count of 10.4 and platelet count of 177. She remains anemic at hemoglobin of 7.3. She had iron studies, which showed an elevated ferritin of 9118; however, her iron saturation was only 4%, serum iron was 15 and her TIBC was elevated at 423. She had a retic count, which was mildly elevated at 2.0. Over the course of the last few days, her symptoms have improved. She no longer has fever, no blood in her stool and she has no abdominal pain. PAST MEDICAL HISTORY: Hypothyroidism. PAST SURGICAL HISTORY: Cholecystectomy, and colonoscopy. ALLERGIES: No known drug allergies. HOME MEDICATIONS: Levothyroxine 88 mcg daily. FAMILY HISTORY: Lung cancer. SOCIAL HISTORY: , has 3 children. No alcohol, tobacco or illicit drug use. REVIEW OF SYSTEMS: Ten point review of systems is negative except for abdominal discomfort. PHYSICAL EXAMINATION: VITAL SIGNS: Temperature is 98.1, pulse is 79, respiratory rate 22, blood pressure is 118/80, and she is 93% on room air. GENERAL: This is a well-developed, well-nourished female, in no acute distress. HEENT: Normocephalic, atraumatic. Pupils are equal and reactive to light. NECK: Supple. CARDIOVASCULAR: Regular rate and rhythm. LUNGS: Clear. ABDOMEN: Soft. Mildly tender to palpation. Bowel sounds are positive. EXTREMITIES: No clubbing, cyanosis or edema. SKIN: No rash. LYMPHATIC: No palpable lymphadenopathy. NEUROLOGIC: Nonfocal. PSYCHIATRIC: The patient is alert and oriented and answers questions appropriately. PERTINENT LABORATORY AND X-RAYS: Current WBCs are 10.4, hemoglobin 7.3, hematocrit 23.6, platelet count 177,000. She got 53% neutrophils, 18% bands, 12 % lymphocytes. Sodium is 133, potassium is 4.6, chloride is 108, CO2 is 13, BUN is 8, creatinine is 0.56, calcium is 8.5, total bilirubin is 0.5, AST is 63 , ALT is 66, alkaline phosphatase is 129, serum total protein is 6.4, albumin is 3.3, and globulin 3.1. ASSESSMENT: 1. Microcytic anemia. 2. History of menorrhagia. 3. Negative gastrointestinal workup. 4. Likely autoimmune disorder. 5. Elevated ferritin secondary to likely autoimmune disorder. DISCUSSION: Review of the patient's labs, there is no evidence of primary hematological disorder. This does appear to be an autoimmune process. She has improved significantly with steroids. Her ferritin is elevated, but this is an acute phase reactant and likely falsely high. She does have an elevated TIBC, low serum and iron saturation. She may need iron at some point, but would fix her autoimmune disorder first. Thank you for the consult. MOI
[2017-10-20] MEDS: traMADol HCl 50 MG TAB PO PRN (21:23)
[2017-10-21] MEDS: Levothyroxine Sodium 88 MCG TAB PO SCH (05:28)
[2017-10-21 05:49] LABS: ALT (SGPT) 65 U/L (8-55); AST (SGOT) 47 U/L (5-34); Albumin 3.7 g/dL (3.5-5.0); Alkaline Phosphatase 150 U/L (40-150); Anion Gap 15 mmol/L (10-20); BUN (Urea Nitrogen) 11 mg/dL (7.0-18.7); Bilirubin, Total 0.5 mg/dL (0.2-1.2); Calc. Creatinine Clearance 134 mL/min (70-130); Carbon Dioxide 19 mmol/L (22-29); Chloride 105 mmol/L (98-107); Estimated GFR-MDRD Greater than 90; Globulin 3.7 g/dL (2.4-3.5); Glucose 182 mg/dL (70-105); Potassium 4.3 mmol/L (3.5-5.1); Protein, Total 7.4 g/dL (6.0-8.3); Sodium 135 mmol/L (136-145)
[2017-10-21 05:56] LABS: Band 7 % (5-11); Hemoglobin 7.8 g/dL (12.0-16.0); Lymphocytes 25 % (21-51); MDiff Complete? YES; Mean Corpuscular HGB CONC 30.6 g/dL (32.0-36.0); Mean Corpuscular Hemoglobin 20.4 pg (27.0-31.0); Mean Corpuscular Volume 66.7 fl (81.0-99.0); Mean Platelet Volume 7.3 fL (7.4-10.4); Metamyelocyte 6 % (0-0); Monocytes 6 % (0-10); Myelocyte 1 % (0-0); Neutrophil 55 % (42-75); Nucleated RBC 1 % (0); PLT Morphology Comment Appears Adequate; Platelet Count 252 thou/uL (130-400); RBC Distribution Width 18.3 % (11.5-14.5); Red Blood Cell (RBC) Count 3.84 mill/uL (4.20-5.40); White Blood Cell (WBC) Count 13.5 thou/uL (4.8-10.8)
[2017-10-21] MEDS: predniSONE 20 MG TAB PO SCH (09:45)
--- NOTE | 2017-10-21 13:47 | PDOC.PN ---
- Subjective Encounter Start Date: 10/21/17 Encounter Start Time: 11:00 Patient is seen today, alert and oriented. She is c/o intense itching in her groin with redness noted. - Objective MAR Reviewed: Yes Vital Signs & Weight: Vital Signs (12 hours) Temp Pulse Resp BP BP Pulse Ox 10/21/17 09:45 98 F 78 16 112/64 10/21/17 03:30 98.2 F 81 123/80 98 Weight Weight 160 lb 2 oz I&O: 10/20/17 10/21/17 10/22/17 06:59 06:59 06:59 Intake Total 5410 621 Balance 5410 621 Result Diagrams: 10/21/17 04:20 10/21/17 04:20 Phys Exam - Physical Examination HEENT: PERRLA, moist MMs Neck: no nodes, no JVD Respiratory: no wheezing, no rales Cardiovascular: RRR, no significant murmur Gastrointestinal: soft, non-tender Musculoskeletal: no edema, pulses present Neurological: non-focal, normal sensation Lymphatic: no nodes Psychiatric: normal affect, A&O x 3 Skin: no rash (erythema and excoriation of groin) Dx/Plan (1) Candidiasis of vulva and vagina Code(s): B37.3 - CANDIDIASIS OF VULVA AND VAGINA Status: Acute Comment: Will start pt on Fluconazole 150mg once. (2) Anemia Code(s): D64.9 - ANEMIA, UNSPECIFIED Status: Acute Qualifiers: Bone marrow failure anemia type: pancytopenia, other Comment: Due to Still's disease, neg endoscopy, monitor for improvement with steroids. 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 Will try and get rheumatology imput as oupatient. Going to be difficult due to uninsured status. - Plan cont current plan of care, PT/OT, out of bed/ambulate, DVT proph w/SCDs * . - Discharge Day Encounter end time: 11:30 Review of Systems - Review of Systems Constitutional: negative: fever, chills, sweats, weakness, malaise, other Eyes: negative: Pain, Vision Change, Conjunctivae Inflammation, Eyelid Inflammation, Redness, Other ENT: negative: Ear Pain, Ear Discharge, Nose Pain, Nose Discharge, Nose Congestion, Mouth Pain, Mouth Swelling, Throat Pain, Throat Swelling, Other Respiratory: negative: Cough, Dry, Shortness of Breath, Hemoptysis, SOB with Excertion, Pleuritic Pain, Sputum, Wheezing Cardiovascular: negative: chest pain, palpitations, orthopnea, paroxysmal nocturnal dyspnea, edema, light headedness, other Gastrointestinal: negative: Nausea, Vomiting, Abdominal Pain, Diarrhea, Constipation, Melena, Hematochezia, Other Genitourinary: Other (groin itching with erythema). negative: Dysuria, Frequency, Incontinence, Hematuria, Retention Musculoskeletal: negative: Neck Pain, Shoulder Pain, Arm Pain, Back Pain, Hand Pain, Leg Pain, Foot Pain, Other - Medications/Allergies Allergies/Adverse Reactions: Allergies Allergy/AdvReac Type Severity Reaction Status Date / Time No Known Drug Allergies Allergy Verified 10/14/17 02:18 Medications: Current Medications Acetaminophen (Tylenol) 650 mg PO Q6H PRN PRN Reason: Headache/Fever or Pain Last Admin: 10/17/17 21:41 Dose: 650 mg Acetaminophen (Tylenol) 650 mg CA Q6H PRN PRN Reason: Fever Last Admin: 10/18/17 13:55 Dose: 650 mg Hydrocodone Bitart/Acetaminophen ([place] 5/325) 1 tab PO Q4H PRN PRN Reason: Moderate Pain (4-6) Last Admin: 10/17/17 16:08 Dose: 1 tab Al Hydroxide/Mg Hydroxide (Maalox) 30 ml PO Q6H PRN PRN Reason: Heartburn or Indigestion Benzonatate (Tessalon) 100 mg PO Q4H PRN PRN Reason: Cough Last Admin: 10/19/17 23:56 Dose: 100 mg Bisacodyl (Dulcolax) 10 mg PO DAILYPRN PRN PRN Reason: Constipation Calcium Carbonate (Tums) 1,000 mg PO Q4H PRN PRN Reason: Heartburn or Indigestion Clonidine (Catapres) 0.1 mg PO Q4H PRN PRN Reason: Systolic BP > 160 Guaifenesin (Robitussin Sf) 200 mg PO Q4H PRN PRN Reason: Cough Hydralazine HCl (Apresoline) 10 mg SLOW IVP Q4H PRN PRN Reason: Systolic BP > 180 Ibuprofen (Motrin) 600 mg PO Q6H PRN PRN Reason: Fever > 101 Last Admin: 10/18/17 22:29 Dose: 600 mg Levothyroxine Sodium (Synthroid) 88 mcg PO 0600 [facility] Last Admin: 10/21/17 05:28 Dose: 88 mcg Morphine Sulfate (Morphine) 2 mg SLOW IVP Q4H PRN PRN Reason: Pain Last Admin: 10/17/17 23:55 Dose: 2 mg Nitroglycerin (Nitrostat) 0.4 mg SL Q5MIN PRN PRN Reason: Chest Pain Last Admin: 10/14/17 07:08 Dose: 0.4 mg Ondansetron HCl (Zofran) 4 mg IVP Q6H PRN PRN Reason: Nausea/Vomiting Last Admin: 10/18/17 09:49 Dose: 4 mg Pantoprazole Sodium (Protonix) 40 mg PO DAILY [facility] Last Admin: 10/21/17 09:45 Dose: 40 mg Prednisone (Prednisone) 60 mg PO QAM-[facility] Last Admin: 10/21/17 09:45 Dose: 60 mg Promethazine HCl (Phenergan) 12.5 mg SLOW IVP Q6H PRN PRN Reason: Nausea Last Admin: 10/15/17 10:22 Dose: 12.5 mg Senna (Senokot) 2 tab PO HSPRN PRN PRN Reason: Constipation Sodium Chloride (Flush - Normal Saline) 10 ml IVF Q12HR [facility] Last Admin: 10/21/17 09:47 Dose: 10 ml Sodium Chloride (Flush - Normal Saline) 10 ml IVF PRN PRN PRN Reason: Saline Flush Sodium Chloride (Flush - Normal Saline) 10 ml IVF PRN PRN PRN Reason: Saline Flush Tramadol HCl (Ultram) 50 mg PO Q4H PRN PRN Reason: Moderate Pain (4-6) Last Admin: 10/20/17 21:23 Dose: 50 mg
[2017-10-21] MEDS ORDERED: diphenhydrAMINE 2% CREAM 28.4 GM TUBE TOP PRN (13:50)
[2017-10-21] MEDS ORDERED: Fluconazole 100 MG TAB PO SCH (14:00)
--- NOTE | 2017-10-21 17:32 | PRG ---
DATE OF SERVICE: 10/21/2017 SUBJECTIVE: Feeling better. No headaches at the left side. Lymphadenitis improving. No sore throa t. No dyspnea or cough. No abdominal pain. OBJECTIVE: VITAL SIGNS: Normal. NECK: Still with area of lymph node enlargement, left side of the neck, much less tender than before . LUNGS: Symmetric clear breath sounds. HEART: S1, S2, regular rate. ABDOMEN: Soft, nondistended. EXTREMITIES: Moves extremities equally. LABORATORY DATA: White cell count up to 13.5, hemoglobin 7.8, platelets 252, 55% segmented neutrophi ls, 7% bands. Creatinine 0.64, sodium 135. Transaminases are further down, AST down to 47, ALT 65. All the serologies have been negative. 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 This appears to be serendipitous finding, unrelated to the patient's clinical presentation. Carcinoid syndrome typically associated diarrhea, flushing, as well as bronch oscopy constriction and vomiting. It is not typically associated with fever or pancytopenia. The patient will need to consult with a box blank machine feeder for management of likely adult Still's disease , transition to oral corticosteroids and start working on discharge planning. Dr. Chino will have to follow her up for this finding from the gastric biopsy.
[2017-10-22] MEDS: Levothyroxine Sodium 88 MCG TAB PO SCH (04:52)
[2017-10-22] MEDS: predniSONE 20 MG TAB PO SCH (09:09)
--- NOTE | 2017-10-22 13:28 | PDOC.PN ---
- Subjective Encounter Start Date: 10/22/17 Encounter Start Time: 13:00 Patient is seen today, alert and oriented, Discussed with her at Bedside , pt vaginal itching is improving. - Objective MAR Reviewed: Yes Vital Signs & Weight: Vital Signs (12 hours) Temp Pulse Resp BP Pulse Ox 10/22/17 08:00 99 F 72 16 99 10/22/17 07:18 99 F 72 16 120/76 Weight Weight 160 lb 2 oz I&O: 10/21/17 10/22/17 10/23/17 06:59 06:59 06:59 Intake Total 621 1120 240 Balance 621 1120 240 Result Diagrams: 10/21/17 04:20 10/21/17 04:20 Phys Exam - Physical Examination HEENT: PERRLA, moist MMs Neck: no nodes, no JVD Respiratory: no wheezing, no rales Cardiovascular: RRR, no significant murmur Gastrointestinal: soft, non-tender Musculoskeletal: no edema, pulses present Neurological: non-focal, normal sensation Dx/Plan (1) Candidiasis of vulva and vagina Code(s): B37.3 - CANDIDIASIS OF VULVA AND VAGINA Status: Acute Comment: Will start pt on Fluconazole 150mg once.improving, will continue to monitor. (2) Anemia Code(s): D64.9 - ANEMIA, UNSPECIFIED Status: Acute Qualifiers: Bone marrow failure anemia type: pancytopenia, other Comment: Due to Still's disease, neg endoscopy, monitor for improvement with steroids. 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 Will try and get rheumatology imput as oupatient. Going to be difficult due to uninsured status. 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 - Discharge Day Encounter end time: 13:35 Review of Systems - Review of Systems Constitutional: weakness Eyes: negative: Pain, Vision Change, Conjunctivae Inflammation, Eyelid Inflammation, Redness, Other ENT: negative: Ear Pain, Ear Discharge, Nose Pain, Nose Discharge, Nose Congestion, Mouth Pain, Mouth Swelling, Throat Pain, Throat Swelling, Other Respiratory: negative: Cough, Dry, Shortness of Breath, Hemoptysis, SOB with Excertion, Pleuritic Pain, Sputum, Wheezing Cardiovascular: negative: chest pain, palpitations, orthopnea, paroxysmal nocturnal dyspnea, edema, light headedness, other Gastrointestinal: negative: Nausea, Vomiting, Abdominal Pain, Diarrhea, Constipation, Melena, Hematochezia, Other Genitourinary: negative: Dysuria, Frequency, Incontinence, Hematuria, Retention , Other Musculoskeletal: negative: Neck Pain, Shoulder Pain, Arm Pain, Back Pain, Hand Pain, Leg Pain, Foot Pain, Other - Medications/Allergies Allergies/Adverse Reactions: Allergies Allergy/AdvReac Type Severity Reaction Status Date / Time No Known Drug Allergies Allergy Verified 10/14/17 02:18 Medications: Current Medications Acetaminophen (Tylenol) 650 mg PO Q6H PRN PRN Reason: Headache/Fever or Pain Last Admin: 10/17/17 21:41 Dose: 650 mg Acetaminophen (Tylenol) 650 mg VT Q6H PRN PRN Reason: Fever Last Admin: 10/18/17 13:55 Dose: 650 mg Hydrocodone Bitart/Acetaminophen (Manning 5/325) 1 tab PO Q4H PRN PRN Reason: Moderate Pain (4-6) Last Admin: 10/17/17 16:08 Dose: 1 tab Al Hydroxide/Mg Hydroxide (Maalox) 30 ml PO Q6H PRN PRN Reason: Heartburn or Indigestion Benzonatate (Tessalon) 100 mg PO Q4H PRN PRN Reason: Cough Last Admin: 10/19/17 23:56 Dose: 100 mg Bisacodyl (Dulcolax) 10 mg PO DAILYPRN PRN PRN Reason: Constipation Calcium Carbonate (Tums) 1,000 mg PO Q4H PRN PRN Reason: Heartburn or Indigestion Clonidine (Catapres) 0.1 mg PO Q4H PRN PRN Reason: Systolic BP > 160 Guaifenesin (Robitussin Sf) 200 mg PO Q4H PRN PRN Reason: Cough Hydralazine HCl (Apresoline) 10 mg SLOW IVP Q4H PRN PRN Reason: Systolic BP > 180 Ibuprofen (Motrin) 600 mg PO Q6H PRN PRN Reason: Fever > 101 Last Admin: 10/18/17 22:29 Dose: 600 mg Levothyroxine Sodium (Synthroid) 88 mcg PO 0600 [facility] Last Admin: 10/22/17 04:52 Dose: 88 mcg Morphine Sulfate (Morphine) 2 mg SLOW IVP Q4H PRN PRN Reason: Pain Last Admin: 10/17/17 23:55 Dose: 2 mg Nitroglycerin (Nitrostat) 0.4 mg SL Q5MIN PRN PRN Reason: Chest Pain Last Admin: 10/14/17 07:08 Dose: 0.4 mg Ondansetron HCl (Zofran) 4 mg IVP Q6H PRN PRN Reason: Nausea/Vomiting Last Admin: 10/18/17 09:49 Dose: 4 mg Pantoprazole Sodium (Protonix) 40 mg PO DAILY [facility] Last Admin: 10/22/17 09:11 Dose: 40 mg Prednisone (Prednisone) 60 mg PO [facility] Last Admin: 10/22/17 09:09 Dose: 60 mg Promethazine HCl (Phenergan) 12.5 mg SLOW IVP Q6H PRN PRN Reason: Nausea Last Admin: 10/15/17 10:22 Dose: 12.5 mg Senna (Senokot) 2 tab PO HSPRN PRN PRN Reason: Constipation Sodium Chloride (Flush - Normal Saline) 10 ml IVF Q12HR [facility] Last Admin: 10/22/17 09:12 Dose: 10 ml Sodium Chloride (Flush - Normal Saline) 10 ml IVF PRN PRN PRN Reason: Saline Flush Tramadol HCl (Ultram) 50 mg PO Q4H PRN PRN Reason: Moderate Pain (4-6) Last Admin: 10/20/17 21:23 Dose: 50 mg Zinc Acetate/Diphenhydramine (Benadryl 2% Cream) 0 gm TOP Q4H PRN PRN Reason: itching
--- NOTE | 2017-10-22 15:02 | PRG ---
DATE OF SERVICE: 10/22/2017 SUBJECTIVE: Ms. Finley has no further fevers or pain. She has improved with steroids. OBJECTIVE: VITAL SIGNS: Temperature 99.0, pulse 72, blood pressure 120/76. GENERAL: She is in no acute distress, alert and oriented x3. HEENT: Eyes have no scleral icterus. LUNGS: Clear to auscultation bilaterally. HEART: Regular rate and rhythm without murmur. ABDOMEN: Soft, nontender, nondistended. Bowel sounds are present. EXTREMITIES: No lower extremity edema. LABORATORY DATA: Hemoglobin is 7.8, AST 47, ALT 65. Bilirubin 0.5, alkaline phosphatase 150, albumi n 3.7. 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 Two of her polyps are red with a little bit of white cap that can typically be seen with carcinoid tumor. She did have multiple other polyps as well, which could also be carcinoid or could be hyperp lastic or fundic gland polyps. She has no signs of metastatic disease in the liver by CT scan. 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 RECOMMENDATIONS: 1. Check fasting gastrin level tomorrow morning. 2. It is fine for her to discharge home from a GI standpoint. The plan is to bring her back as an o utpatient and repeat endoscopy to remove all the stomach polyps with snare polypectomy. Local treatm ent with polypectomy is usually adequate for type 1 gastric carcinoid and then after that routine vamsi veillance with EGD every 6-12 months will be required. 3. Biopsy for H. pylori at that time followup endoscopy. In the meantime, I will check an H. pylori antibody. 4. I will sign off for now and arrange outpatient followup endoscopy.
--- NOTE | 2017-10-22 15:45 | PRG ---
DATE OF SERVICE: 10/22/2017 SUBJECTIVE: Feeling again progressively better, sitting by the bedside. Awake, oriented, in no dist ress, no more pain in the neck area, able to sleep well at night in any position. No cough, no chest pain, no abdominal pain, maybe mild abdominal pain in the upper segments. She is actually constipat ed. She moves all extremities equally. PHYSICAL EXAMINATION: VITAL SIGNS: Normal. Last temperature was 99% pulse ox with room air O2. GENERAL: Awake and alert to the lymph nodes that had been palpable previously are not palpable any l onger in the neck area. No tenderness there. LUNGS: Clear. HEART: S1, S2, regular rate. ABDOMEN: Soft, not distended. LABORATORY DATA: White cell count is up to 13.5, probably from the steroid effect, hemoglobin 7.8, p latelets 252 with a normal differential, bands are down to normal now, creatinine 0.64, AST is 47 and 65. 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 I have discussed with Dr. Tamara Graham, air bag curer in [facility] and she will see the patient on Wednesday for followup from the hospital [facility] and then make plans for treatment with tapering of corticosteroids and transition to a different steroid sparing regimen for management of her illness.
[2017-10-22] MEDS: diphenhydrAMINE 2% CREAM 28.4 GM TUBE TOP PRN (18:24)
[2017-10-23] MEDS: Levothyroxine Sodium 88 MCG TAB PO SCH (05:49)
[2017-10-23] MEDS: predniSONE 20 MG TAB PO SCH (08:41)
[2017-10-23] MEDS: diphenhydrAMINE 2% CREAM 28.4 GM TUBE TOP PRN (08:42)
[2017-10-23 12:34] VITALS: BP 117/73; TEMP 98.4
--- NOTE | 2017-10-23 14:20 | DIS ---
DATE OF ADMISSION: 10/14/2017 DATE OF DISCHARGE: 10/23/2017. ADMITTING DIAGNOSIS: Acute systemic inflammatory response syndrome. DISCHARGE DIAGNOSIS: Acute adult Still's disease. SECONDARY DIAGNOSES: 1. Iron deficiency anemia. 2. History of cervical lymphadenopathy. 3. Carcinoid syndrome. 4. Uncontrolled hypertension. CONSULTANTS INVOLVED: 1. Dr. Martha Lane. 2. Dr. Esequiel Chino from GI. 3. Dr. Timmy Ugarte from Infectious Disease. INVESTIGATIONS DONE DURING THIS ADMISSION: 1. CT of the abdomen and pelvis which showed no evidence of any acute abdominal process. 2. CT of the brain was done, which was unremarkable. 3. Vascular ultrasound of the left upper extremity was done, which showed no evidence of any DVT. HISTORY OF PRESENT ILLNESS/HOSPITAL COURSE: In brief, this is a 42-year-old female, who has a language barrier, and her son was there at the bedside for translation and for further assistance with the patient. The patient presented with a sore lymph node and fever to her primary care physici and was having some abdominal pain with diarrhea, so she was referred to the ER and had a thorough evaluation. CT of the chest, abdomen, and pelvis was unremarkable. CBC on admission had a white co unt of 5.1 with elevated white cells, elevated neutrophils. Her hemoglobin was 9.4 and a platelet co unt was 212 and was noted to have iron deficiency anemia. She had a thorough workup for bloody stool s, which was negative. The patient was seen by GI, Dr. Chino, who did EGD and had gastric biopsies, which turned out to be a carcinoid syndrome, but has no relation with the patient's symptoms. Dr. Kumar was also consulted and based on his evaluation, it was decided that the patient could be having a possible autoimmune disorder as she responded very well to the steroids. I understood that the molina ent could be having a adult Still's disease and he suggested to refer to Rheumatology for further ky luation. The patient's symptoms improved on steroids. She was started on 60 mg of prednisone, which needs to be tapered down following her consultation visit with Rheumatology, Dr. Graham. The patient discharged home in stable condition. PHYSICAL EXAMINATION: VITAL SIGNS: Blood pressure 117/73, heart rate is 100, respirations 20, saturation 98%. GENERAL: The patient is moderately built, moderately nourished, does not appear to be in acute distr ess at this time. CARDIOVASCULAR: S1, S2 normal. No murmurs, rubs or gallops. LUNGS: Bilateral air entry was equal. No wheezing, no crackles. ABDOMEN: Soft, nontender, no guarding, no rebound tenderness. Bowel sounds normal. MUSCULOSKELETAL: No calf tenderness. No pedal edema. No joint tenderness, no joint swelling. SKIN: No cyanosis or erythema. No rash. No pallor. NEUROLOGIC: Cranial nerve examination II-XII intact. No focal deficits were noted. DISCHARGE MEDICATIONS: 1. Levothyroxine 88 mcg daily. 2. Prednisone 60 mg tablet daily, continue until the patient sees Rheumatology. On the day of disch arge, lisinopril was added, but was later discontinued as the patient's blood pressures were low and advised the patient to follow up with her primary care physician to recheck her blood pressures. DISCHARGE INSTRUCTIONS: 1. Continue activity as tolerated. Advised to follow up with Dr. Graham, Rheumatology, on Wednesday, which has already been scheduled by Dr. Ugarte. 2. The patient will be following up with Dr. Ugarte in 2-3 weeks. 3. The patient will continue on the regular diet. I explained to the patient the patient being on s teroids will make her sugars go high, so advised to improve hydration. 4. Advance treatment. The patient is to return to the ER if the patient develops worsening symptoms of abdominal pain or nausea or vomiting. I spent 35 minutes in this patient.
== END 2017-10-23 13:50 | disposition home or self-care (01) | DRG 872 ==
LOC: ERS 18:30 → 2SW 10-14 00:15 → OBSVTOIN 10-14 00:15 → 2SW 10-15 00:07 → IMCU/EMU 10-18 15:36 → 2NO 10-20 21:58 → T4-B 10-21 15:38
PROVIDERS: ADMIT Internal Medicine; ATTEND Internal Medicine
PROC: 0DB98ZX Excision of Duodenum, Via Natural or Artificial Opening Endoscopic, Diagnostic (ICD-10-PCS; principal; 2017-10-18)
PROC: 0DB68ZX Excision of Stomach, Via Natural or Artificial Opening Endoscopic, Diagnostic (ICD-10-PCS; 2017-10-18)
PROC: 0DBG8ZX Excision of Left Large Intestine, Via Natural or Artificial Opening Endoscopic, Diagnostic (ICD-10-PCS; 2017-10-18)
PROC: 0DBF8ZX Excision of Right Large Intestine, Via Natural or Artificial Opening Endoscopic, Diagnostic (ICD-10-PCS; 2017-10-18)
DX: A41.9 Sepsis, unspecified organism (principal); D61.818 Other pancytopenia; E34.0 Carcinoid syndrome; M06.1 Adult-onset Still's disease; I80.8 Phlebitis and thrombophlebitis of other sites; D50.9 Iron deficiency anemia, unspecified; B37.3 Candidiasis of vulva and vagina; E03.9 Hypothyroidism, unspecified; I10 Essential (primary) hypertension; K31.7 Polyp of stomach and duodenum; N92.0 Excessive and frequent menstruation with regular cycle
CPT/HCPCS: 36415; 70450; 71260; 74177; 76705; 80048; 80053; 80074; 80202; 81003; 82103; 82104; 82274; 82607; 82728; 82746; 82941; 83010; 83516; 83540; 83550; 83605; 83615; 83630; 83690; 83735; 84443; 84484; 84703; 85025; 85046; 85060; 85610; 85730; 86038; 86160; 86225; 86480; 86611; 86645; 86663; 86664; 86665; 86677; 86850; 86880; 86900; 86901; 87040; 87045; 87046; 87086; 87324; 87328; 87329; 87385; 87389; 87449; 87497; 87633; 87798; 87899; 88305; 88312; 88341; 88342; 88360; 93005; 93010; 93306; 96361; 96374; 96375; J2270; A4216; C9113; J0696; J1756; J1956; J2001; J2185; J2405; J2550; J2704; J3370; J3480; J7050; J7506

== ENCOUNTER 2017-11-10 07:25 | Day surgery (SDC) | payer OTHER ==
[2017-11-09 12:40] VITALS: BMI 28.7
--- NOTE | 2017-11-10 11:27 | OP ---
DATE OF PROCEDURE: 11/10/2017 PROCEDURE: Esophagogastroduodenoscopy with snare polypectomy and biopsy. PREOPERATIVE DIAGNOSIS: Type 1 gastric carcinoid. DESCRIPTION OF PROCEDURE: Informed consent was obtained from the patient. She was sedated with tota l intravenous anesthesia. The bite block was placed and the endoscope was advanced easily to the sec ond portion of the duodenum and retroflexion was performed in the stomach. The esophagus was normal. The GE junction was normal. The stomach had 5 small polyps measuring 5-6 mm, which were removed fr om the body by snare cautery polypectomy. The more distal polyp removed from the body had immediate post-polypectomy bleeding, which was controlled with electrocautery with 10-[place] gold probe at 20 w atts maximum. Two larger polyps and one smaller polyps were removed from the fundus by snare cautery polypectomy. The larger polyp measured in the 8-10 mm range. A medium sized polyp was around 7 mm. There was also a small 5 mm polyp removed. Random biopsies were taken from the antrum. IMPRESSION: 1. Gastric carcinoid tumors. These are small and multifocal. This is most suggestive of type 1 car cinoids. Her gastrin level was mildly elevated at 365 range. She likely has atrophic gastritis iris g with this. Biopsies were taken from the antrum of the stomach to rule out H. pylori and evaluate f or atrophic gastritis. 2. Total of 3 polyps was removed from the fundus. Six polyps were removed from the body. RECOMMENDATIONS: 1. Await histopathology. 2. I will hold off acid suppression therapy since this condition is typically associated with achlor hydria and elevated gastrin from an elevated pH resulting from atrophic gastritis. 3. Repeat EGD in 6 months. She will require surveillance endoscopy every [address] able for a period of time and then yearly.
[2017-11-10] MEDS ORDERED: Lidocaine 1% PF 5 ML VIAL ONE (16:35)
[2017-11-10] MEDS ORDERED: Propofol 200 MG/20 ML VIAL ONE (16:35)
== END 2017-11-10 12:35 | disposition home or self-care (01) ==
LOC: SDC 07:25
PROVIDERS: ATTEND Internal Medicine Gastroenterology
PROC: 0DB68ZX Excision of Stomach, Via Natural or Artificial Opening Endoscopic, Diagnostic (ICD-10-PCS; principal; 2017-11-10)
DX: D49.0 Neoplasm of unspecified behavior of digestive system (principal); E03.9 Hypothyroidism, unspecified; K29.50 Unspecified chronic gastritis without bleeding; Z79.52 Long term (current) use of systemic steroids; Z79.899 Other long term (current) drug therapy
CPT/HCPCS: 88305; 88312; 88342; 88360; J2001; J2704

== ENCOUNTER 2018-02-24 12:04 | Outpatient (CLI) | payer OTHER ==
--- NOTE | 2018-02-28 09:33 | NM ---
NUCLEAR MEDICINE TUMOR LOCALIZATION OCTREO SCAN: HISTORY: A 43-year-old female with gastric carcinoid tumors and elevated gastrin levels. TECHNIQUE: Whole body planar images were obtained 24 hours after the intravenous administration of 5.7 mCi Indiu m [address] images of the chest, abdomen, and pelvis were also obtained. FINDINGS: There is physiologic activity in the spleen, kidneys, and liver. No abnormal areas of tracer localization are seen. IMPRESSION: Normal exam. POS: ENA
== END 2018-02-24 12:05 | disposition home or self-care (01) ==
LOC: NM 12:04
PROVIDERS: ATTEND Internal Medicine Gastroenterology
DX: E16.4 Increased secretion of gastrin (principal)
CPT/HCPCS: 78802; 78803; A4641; A9572

== ENCOUNTER 2024-09-09 17:59 | Inpatient (IN) | payer BC, SELFPAY ==
[2024-09-09 18:49] LABS: #Basophils Less than 0.03 10x3/uL (0.0-0.2); #Eosinophils Less than 0.03 10x3/uL (0.0-0.7); %Basophils 0.2 % (0.0-1.0); %Eosinophils 0.1 % (0.0-10.0); %Lymphocytes 2.2 % (21.0-51.0); %Monocytes 5.9 % (0.0-10.0); %Neutrophils 91.1 % (42.0-75.0); Hematocrit 40.9 % (36.0-47.0); Hemoglobin 14.6 g/dL (12.0-16.0); Mean Corpuscular HGB CONC 35.7 g/dL (32.0-36.0); Mean Corpuscular Hemoglobin 30.4 pg (27.0-31.0); Mean Corpuscular Volume 85.2 fL (78.0-98.0); Mean Platelet Volume 9.7 fL (7.4-10.4); Platelet Count 245 10x3/uL (130-400); RBC Distribution Width 12.9 % (11.5-14.5)
[2024-09-09 18:59] LABS: BHCG - Serum Negative (NEGATIVE); Pregs Control Background? CLEAR/WHITE (CLR/WHITE); Pregs Control Bar Appear? YES (CONTROL BAR)
[2024-09-09 19:08] LABS: ALT (SGPT) 54 U/L (8-55); AST (SGOT) 54 U/L (5-34); Albumin 4.3 g/dL (3.5-5.0); Alkaline Phosphatase 137 U/L (40-110); Anion Gap 16 mmol/L (10-20); BUN (Urea Nitrogen) 7 mg/dL (7.0-18.7); Bilirubin, Total 0.6 mg/dL (0.2-1.2); Calc. Creatinine Clearance 0 mL/min (70-130); Calcium 9.8 mg/dL (7.8-10.44); Carbon Dioxide 21 mmol/L (22-29); Chloride 104 mmol/L (98-107); Estimated GFR 109; Globulin 3.8 g/dL (2.4-3.5); Glucose 215 mg/dL (70-105); Lipase 28 U/L (8-78); Protein, Total 8.1 g/dL (6.0-8.3); Sodium 137 mmol/L (136-145)
[2024-09-09 19:11] LABS: Troponin I Less than 0.010 ng/mL (< 0.028)
[2024-09-09] MEDS ORDERED: Acetaminophen 500 MG TAB ONE (19:13)
[2024-09-09 20:19] LABS: Bacteria/HPF None Seen HPF (None Seen); Bilirubin Negative (Negative); Blood, Urine Trace (Negative); CAUTI Indications for Culture Fever or rigors; Clarity Clear (Clear); Glucose, Urine (Dipstick) 300 mg/dL (Negative); Ketone, Urine 20 mg/dL (Negative); Leukocyte Negative Leu/uL (Negative); Nitrite Negative (Negative); Protein, Urine (Dipstick) Negative (Neg-Trace); RBC/HPF 0-3 HPF (0-3); Specific Gravity, Urine 1.014 (1.002-1.036); Squamous Epithelial 0-3 HPF (0-3); Urobilinogen Normal mg/dL (Less than 2); WBC/HPF 0-3 HPF (0-3)
[2024-09-09 20:20] LABS: Urine Culture Reflex No No
[2024-09-09] MEDS ORDERED: Sodium Chloride 0.9% 100 ML ONE (20:32)
[2024-09-09] MEDS ORDERED: cefTRIAXone (ROCEPHIN) 1 GM VIAL ONE (20:32)
[2024-09-09] MEDS ORDERED: cefTRIAXone (ROCEPHIN) 2 GM VIAL ONE (20:34)
[2024-09-09] MEDS ORDERED: Ketorolac Tromethamine 30 MG (1 mL) VIAL ONE (21:26)
[2024-09-09] MEDS ORDERED: Morphine 4 MG/ML VIAL ONE (21:26)
[2024-09-09] MEDS ORDERED: fentaNYL 50 mcg/mL 1 mL Vial ONE (22:39)
[2024-09-09] MEDS ORDERED: Insulin Lispro 100 UNIT/ML 10 ML VIAL SC PRN (23:55)
[2024-09-09] MEDS ORDERED: Acetaminophen 650 MG Suppository PR PRN (23:55)
[2024-09-09] MEDS ORDERED: traMADol HCl 50 MG TAB PO PRN ×2 (23:55)
[2024-09-09] MEDS ORDERED: Glucagon 1 MG/ML KIT IM PRN (23:55)
[2024-09-09] MEDS ORDERED: Dextrose 50% Abboject 50 ML SYRINGE SLOW IVP PRN (23:55)
[2024-09-09] MEDS ORDERED: Dextrose 5% in Water 1,000 ML IV PRN (23:55)
[2024-09-10] MEDS ORDERED: Pantoprazole 40 MG VIAL ONE (00:17)
[2024-09-10] MEDS: Sodium Chloride 0.9% 1,000 ML IV SCH (01:49)
[2024-09-10] MEDS: Lidocaine 2% Viscous Solution 10 ML, Aluminum & Magnesium Hydroxide 30 ML SSW SCH (01:49)
[2024-09-10] MEDS: Acetaminophen 325 MG TAB PO PRN (02:04)
[2024-09-10] MEDS: Morphine 2 MG/ML VIAL SLOW IVP SCH (02:08)
[2024-09-10 02:33] VITALS: BMI 28.1
[2024-09-10 04:34] LABS: #Basophils Less than 0.03 10x3/uL (0.0-0.2); #Eosinophils Less than 0.03 10x3/uL (0.0-0.7); %Basophils 0.3 % (0.0-1.0); %Lymphocytes 6.4 % (21.0-51.0); %Monocytes 7.9 % (0.0-10.0); %Neutrophils 84.9 % (42.0-75.0); Hematocrit 34.3 % (36.0-47.0); Hemoglobin 11.9 g/dL (12.0-16.0); Mean Corpuscular HGB CONC 34.7 g/dL (32.0-36.0); Mean Corpuscular Hemoglobin 30.2 pg (27.0-31.0); Mean Corpuscular Volume 87.1 fL (78.0-98.0); Mean Platelet Volume 9.8 fL (7.4-10.4); Platelet Count 200 10x3/uL (130-400); RBC Distribution Width 13.3 % (11.5-14.5); Red Blood Cell (RBC) Count 3.94 mill/uL (4.20-5.40)
[2024-09-10 04:53] LABS: Hemoglobin A1c 5.9 % (4.0-6.0)
[2024-09-10 05:01] LABS: Anion Gap 10 mmol/L (10-20); BUN (Urea Nitrogen) 6 mg/dL (7.0-18.7); Calc. Creatinine Clearance 147 mL/min (70-130); Calcium 8.3 mg/dL (7.8-10.44); Carbon Dioxide 21 mmol/L (22-29); Chloride 110 mmol/L (98-107); Estimated GFR 115; Glucose 117 mg/dL (70-105); Magnesium 1.7 mg/dL (1.6-2.6); Phosphorus 3.2 mg/dL (2.3-4.7); Potassium 3.5 mmol/L (3.5-5.1); Sodium 137 mmol/L (136-145)
[2024-09-10 08:18] LABS: Amphetamine Not Detected (NotDetected); Barbiturates Screen Not Detected (NotDetected); Benzodiazepine Screen Not Detected (NotDetected); Cocaine Metabolite Screen Not Detected (NotDetected); Methadone Not Detected (NotDetected); Methamphetamine Not Detected (NotDetected); Opiate Screen Not Detected (NotDetected); Oxycodone Screen Not Detected (NotDetected); Phencyclidine (PCP) Not Detected (NotDetected); THC/Cannabinoid Screen Not Detected (NotDetected); Tricyclic Screen Not Detected (NotDetected)
[2024-09-10] MEDS: Enoxaparin 40 MG (0.4 mL) SYRINGE SC SCH (09:19)
[2024-09-10] MEDS: Pantoprazole 40 MG VIAL IVP SCH ×2 (09:20→21:15)
[2024-09-10] MEDS: Ondansetron PF 4 MG/2 ML Vial IVP PRN (09:35)
[2024-09-10] MEDS: Morphine 2 MG/ML VIAL SLOW IVP PRN (10:48)
[2024-09-10] MEDS ORDERED: Aspirin/APAP/Caffeine Tab (Excedrin Migraine) PO PRN (13:37)
[2024-09-10] MEDS: Aspirin/APAP/Caffeine Tab (Excedrin Migraine) PO PRN (15:31)
[2024-09-10] MEDS: Benzonatate 100 MG CAP PO PRN (21:15)
[2024-09-10] MEDS: metFORMIN 500 MG TAB PO SCH (21:15)
[2024-09-10] MEDS: HYDROcodone/Acetaminophen 5/325 mg Tablet PO PRN (22:43)
[2024-09-11] MEDS: Levothyroxine Sodium 88 MCG TAB PO SCH (05:08)
[2024-09-11 08:06] LABS: #Basophils Less than 0.03 10x3/uL (0.0-0.2); #Eosinophils Less than 0.03 10x3/uL (0.0-0.7); %Basophils 0.4 % (0.0-1.0); %Eosinophils 0.2 % (0.0-10.0); %Lymphocytes 15.8 % (21.0-51.0); %Monocytes 8.9 % (0.0-10.0); %Neutrophils 74.3 % (42.0-75.0); Hematocrit 38.5 % (36.0-47.0); Hemoglobin 13.4 g/dL (12.0-16.0); Mean Corpuscular HGB CONC 34.8 g/dL (32.0-36.0); Mean Corpuscular Hemoglobin 29.8 pg (27.0-31.0); Mean Corpuscular Volume 85.7 fL (78.0-98.0); Mean Platelet Volume 9.9 fL (7.4-10.4); Platelet Count 207 10x3/uL (130-400); RBC Distribution Width 13.3 % (11.5-14.5); Red Blood Cell (RBC) Count 4.49 mill/uL (4.20-5.40)
[2024-09-11 08:11] LABS: Anion Gap 16 mmol/L (10-20); BUN (Urea Nitrogen) 4 mg/dL (7.0-18.7); Calc. Creatinine Clearance 122 mL/min (70-130); Calcium 8.8 mg/dL (7.8-10.44); Carbon Dioxide 20 mmol/L (22-29); Chloride 105 mmol/L (98-107); Estimated GFR 110; Glucose 108 mg/dL (70-105); Potassium 3.3 mmol/L (3.5-5.1); Sodium 138 mmol/L (136-145)
[2024-09-11] MEDS ORDERED: Levothyroxine Sodium 88 MCG TAB PO SCH (09:00)
[2024-09-11] MEDS ORDERED: Non-Formulary Item 1 EACH (Mecobalamin [B12 Active] 1,000 MCG Tab.Chew) PO SCH (09:00)
[2024-09-11] MEDS: Cyanocobalamin (Vitamin B-12) 1,000 MCG TAB PO SCH (09:02)
[2024-09-11] MEDS ORDERED: PROPOFOL 20 ML ONE ×2 (09:31→10:02)
[2024-09-11] MEDS ORDERED: Lidocaine 1% PF 5 ML VIAL ONE (09:31)
[2024-09-11] MEDS ORDERED: Ondansetron HCl/PF 4 MG/2 ML Vial IVP PRN (10:24)
[2024-09-11] MEDS ORDERED: Promethazine HCl 25 MG/ML VIAL IM PRN (10:24)
[2024-09-11] MEDS: Polyethylene Glycol 3350 17 GM Packet PO SCH (11:15)
[2024-09-12 05:39] LABS: Anion Gap 14 mmol/L (10-20); BUN (Urea Nitrogen) 5 mg/dL (7.0-18.7); Calc. Creatinine Clearance 124 mL/min (70-130); Calcium 8.4 mg/dL (7.8-10.44); Carbon Dioxide 19 mmol/L (22-29); Chloride 107 mmol/L (98-107); Estimated GFR 110; Glucose 91 mg/dL (70-105); Magnesium 1.8 mg/dL (1.6-2.6); Potassium 3.4 mmol/L (3.5-5.1); Sodium 137 mmol/L (136-145)
[2024-09-12] MEDS: metFORMIN 500 MG TAB PO SCH (09:32)
[2024-09-12] MEDS: Polyethylene Glycol 3350 17 GM Packet PO SCH (09:33)
[2024-09-12 11:08] LABS: Lactic Acid 0.72 mmol/L (0.5-2.2)
[2024-09-12] MEDS: Sucralfate 1 GM TAB PO SCH (12:07)
[2024-09-12] MEDS: predniSONE 50 MG TAB PO SCH (20:22)
[2024-09-13] MEDS: predniSONE 50 MG TAB PO SCH ×2 (00:15→06:39)
[2024-09-13] MEDS: diphenhydrAMINE 12.5 MG/5 ML UDCUP PO SCH (06:39)
[2024-09-13] MEDS: Ondansetron ODT 4 MG TAB PO PRN (07:19)
[2024-09-13 08:50] LABS: #Basophils Less than 0.03 10x3/uL (0.0-0.2); #Eosinophils Less than 0.03 10x3/uL (0.0-0.7); %Lymphocytes 17.1 % (21.0-51.0); %Monocytes 1.8 % (0.0-10.0); %Neutrophils 80.7 % (42.0-75.0); Hematocrit 39.2 % (36.0-47.0); Hemoglobin 14.2 g/dL (12.0-16.0); Mean Corpuscular HGB CONC 36.2 g/dL (32.0-36.0); Mean Corpuscular Hemoglobin 30.4 pg (27.0-31.0); Mean Corpuscular Volume 83.9 fL (78.0-98.0); Mean Platelet Volume 9.4 fL (7.4-10.4); Platelet Count 224 10x3/uL (130-400); RBC Distribution Width 12.7 % (11.5-14.5); Red Blood Cell (RBC) Count 4.67 mill/uL (4.20-5.40)
[2024-09-13 09:04] LABS: Anion Gap 15 mmol/L (10-20); BUN (Urea Nitrogen) 4 mg/dL (7.0-18.7); Calc. Creatinine Clearance 128 mL/min (70-130); Calcium 9.1 mg/dL (7.8-10.44); Carbon Dioxide 19 mmol/L (22-29); Chloride 105 mmol/L (98-107); Estimated GFR 111; Glucose 198 mg/dL (70-105); Potassium 3.8 mmol/L (3.5-5.1); Sodium 135 mmol/L (136-145)
[2024-09-13] MEDS ORDERED: Iopamidol-370 76% 500 ML MDV (1 ML CHARGE) ONE (14:20)
[2024-09-13 14:57] VITALS: BP 116/74; TEMP 97.8
[2024-09-14 00:15] LABS: Campy jejuni + coli by PCR Negative (Negative); STEC Shiga Toxin 1+2 Negative (Negative); Salmonella spp. by PCR Negative (Negative); Shigella spp + EIEC by PCR Negative (Negative)
== END 2024-09-13 14:58 | disposition home or self-care (01) | DRG 392 ==
LOC: SUATTDRO 17:59 → ERS 17:59 → MSONC 23:55 → OBSVTOIN 09-11 12:12
PROVIDERS: ADMIT Family Medicine; ATTEND Internal Medicine
PROC: 0DB68ZX Excision of Stomach, Via Natural or Artificial Opening Endoscopic, Diagnostic (ICD-10-PCS; principal; 2024-09-11)
PROC: 0DB78ZX Excision of Stomach, Pylorus, Via Natural or Artificial Opening Endoscopic, Diagnostic (ICD-10-PCS; 2024-09-11)
DX: R10.9 Unspecified abdominal pain (principal); K29.40 Chronic atrophic gastritis without bleeding; E03.9 Hypothyroidism, unspecified; B34.9 Viral infection, unspecified; E11.9 Type 2 diabetes mellitus without complications; D3A.092 Benign carcinoid tumor of the stomach; G43.909 Migraine, unspecified, not intractable, without status migrainosus; E86.0 Dehydration; Z91.041 Radiographic dye allergy status; Z90.49 Acquired absence of other specified parts of digestive tract; Z98.51 Tubal ligation status; Z79.899 Other long term (current) drug therapy; Z79.84 Long term (current) use of oral hypoglycemic drugs; Z79.890 Hormone replacement therapy
CPT/HCPCS: 36415; 36416; 71045; 74176; 74177; 80048; 80053; 80306; 81001; 83036; 83605; 83690; 83735; 84100; 84443; 84484; 84703; 85025; 87040; 87428; 87505; 88305; 88342; 93005; 96361; 96365; 96372; 96375; 96376; G0378; J0696; J1650; J1885; J2272; J2405; J2470; J2704; J3010; J7030; J7512; Q0162; Q0163; Q9967